=== PATIENT | male | born 1965 | race Caucasian/White ===

== ENCOUNTER 2019-04-02 22:23 | Emergency (ER) | payer OTHER, MEDICAID, SELFPAY ==
[2019-04-02 22:27] VITALS: BP 152/104; PULSE 103; RESP 16; TEMP 36.9; O2SAT 99; BMI 24.3
--- NOTE | 2019-04-02 23:03 | ED_ITS ---
HPI - Back Pain/Injury General Chief Complaint: Back Pain/Injury Stated Complaint: SCIATICA LEFT LEG LOTS OF PAIN Time Seen by Provider: 04/02/19 22:54 Source: patient Mode of arrival: Ambulatory Limitations: no limitations History of Present Illness HPI Narrative: 53-year-old male here for evaluation of left leg sciatic pain. He states that this is the 2nd episode of this. His 1st episode was many years ago. He is unsure how long that episode lasted in. His current episode has been going on for the past week. A couple days ago he was seen in the walk-in clinic was given prednisone and Flexeril. He has been taking his medications without any changes. No fevers. No bowel or bladder symptoms. States the pain is on the outside/back of his left leg down to his knee. Related Data Previous Rx's Medication Instructions Recorded albuterol sulfate 90 mcg/actuation 2 inhalation INHALATION Q4-6H PRN 03/19/19 aerosol inhaler #6.7 gram benzonatate 100 mg capsule 100 mg PO TID PRN #14 cap 03/19/19 promethazine 6.25 mg-codeine 10 5 ml PO Q4-6H PRN #150 ml 03/19/19 mg/5 mL syrup cyclobenzaprine 10 mg tablet 10 mg PO BEDTIME #14 tab 03/31/19 prednisone 20 mg tablet See Rx Instructions PO DAILY 10 03/31/19 Days #14 tab hydrocodone-acetaminophen [[place]] 1 tab PO Q4-6H PRN #10 tab 04/02/19 Allergies Allergy/AdvReac Type Severity Reaction Status Date / Time No Known Drug Allergies Allergy Verified 03/31/19 15:48 Review of Systems Constitutional Constitutional: Denies fever(s) Cardiovascular Cardiovascular: Denies chest pain and Denies dyspnea Respiratory Respiratory: Denies dyspnea Gastrointestinal Gastrointestinal: Denies abdominal pain Musculoskeletal Musculoskeletal: Denies back pain, Denies myalgias and Denies arthralgias Integumentary/Breasts Skin/Breast: Denies lesions and Denies rash Neurologic Neurologic: Reports paresthesias Hematologic/Lymphatic Hematologic/Lymphatic: Denies easy bleeding and Denies easy bruising Patient History Medical History Bronchitis (Inactive) Social History Smoking Status: Current every day smoker Smoking Status: Current every day smoker tobacco type: cigarettes alcohol intake frequency: a few times a week Substance Use Type: marijuana Exam Initial Vital Signs Initial Vital Signs: Vital Signs Temperature 98.4 F 04/02/19 22:27 Pulse Rate 103 H 04/02/19 22:27 Respiratory Rate 16 04/02/19 22:27 Blood Pressure 152/104 H 04/02/19 22:27 Pulse Oximetry 99 04/02/19 22:27 Const General: cooperative and comfortable Orientation: alert and awake HENMT Head: normal to inspection and normocephalic Resp Effort & Inspection: normal respiratory effort Auscultation: clear to auscultation bilaterally Cardio Rate: tachycardic Rhythm: regular rhythm GI Inspection: non-distended Palpation: soft and No firm Skin Lesions: no lesions Rashes: no rashes Neuro General: alert, awake and oriented x3 Cognition: normal cognition Speech: speech normal Gait: normal gait Motor: muscle tone normal throughout Extrem General: normal to inspection and capillary refill normal Course Orders Ordered: Discontinued Medications Hydrocodone Bitart/Acetaminophen (Vicodin 5/325 Prepack) 1 bottle MISC SEEINSTR ONE Stop: 04/02/19 23:04 Ketorolac Tromethamine (Toradol) 30 mg IM NOW ONE Stop: 04/02/19 23:04 Vital Signs Vital signs: Vital Signs - 8 hr 04/02/19 22:27 04/02/19 23:23 Temperature 98.4 F Pulse Rate 103 H 101 H Respiratory Rate 16 18 Blood Pressure 152/104 H Blood Pressure [Right Arm] 152/90 H Pulse Oximetry 99 98 MDM - Back Pain/Injury MDM Narrative Medical decision making narrative: Left-sided sciatic pain. Is currently on Flexeril and prednisone given at an outside clinic visit. No red flag signs concerning for cauda equina. No trauma. No fevers. No indication for radiologic studies. Was given a shot of Toradol here in the ER. He is going to continue his prednisone and Flexeril as directed. Send home with a very short prescription of pain medication. He was given return precautions and follow-up instructions. He expressed understanding and agreement with plan. Discharge Plan Departure Patient Disposition: Home Clinical Impression: Sciatica Qualifiers: Laterality: left Qualified Code(s): M54.32 - Sciatica, left side Discharge Date/Time: 04/02/19 23:26 Instructions: DI for Sciatica Activity Restrictions/Additional Instructions: [facility] Continue the medications that you were given prescriptions for at your last visit. After the prednisone is completed start taking 600 mg of ibuprofen/Motrin every 8 hours or of Naprosyn 2 times a day. If you need help establishing a primary provider here in the area you can contact [phone]. Return to the emergency department for any new symptoms Prescriptions: New hydrocodone-acetaminophen [[place]] 5-325 mg tablet 1 tab PO Q4-6H PRN (Reason: pain) Qty: 10 RF: 0 No Action albuterol sulfate 90 mcg/actuation HFA aerosol inhaler 2 inhalation INHALATION Q4-6H PRN (Reason: shortness of breath or wheezing) Qty: 6.7 RF: 0 promethazine-codeine 6.25-10 mg/5 mL syrup 5 ml PO Q4-6H PRN (Reason: cough) Qty: 150 RF: 0 benzonatate [Tessalon Perles] 100 mg capsule 100 mg PO TID PRN (Reason: cough) Qty: 14 RF: 0 prednisone 20 mg tablet See Rx Instructions PO DAILY 10 Days Qty: 14 RF: 0 cyclobenzaprine 10 mg tablet 10 mg PO BEDTIME Qty: 14 RF: 0
[2019-04-02 23:23] VITALS: BP 152/90; PULSE 101; RESP 18; O2SAT 98
== END 2019-04-02 23:26 | disposition home or self-care (01) ==
PROVIDERS: Emergency Provider Emergency Medicine
DX: M54.32 Sciatica, left side (principal)
CPT/HCPCS: 96372; 99281; 99283

== ENCOUNTER 2019-10-29 20:17 | Emergency (ER) | payer OTHER, MEDICAID, SELFPAY ==
--- NOTE | 2019-10-29 20:24 | ED.GENADULT ---
HPI - General Adult General Chief complaint: Chest Pain Stated complaint: thinks broke his ribs, two days ago Time Seen by Provider: 10/29/19 20:24 History of Present Illness HPI narrative: 54-year-old gentleman with no primary care physician, smoker and drinks regularly tripped over a mattress and the garage 48 hours ago and fell and landed on his right ribs anterior lower. He denies syncope, hitting his head he is on no blood thinners and describes no injuries to other parts of his body with the fall. He has been having increasing pain and difficulty breathing due to pain and splinting since then. Was hurting enough last night that he had difficulty sleeping. He describes no fever, cough, chills, dyspnea(despite splinting), orthopnea or abdominal pain. Notes that he drinks 2-3 drinks a day typically. He has tried aspirin and CBD for the pain and has found it to be ineffective. Related Data Previous Rx's Medication Instructions Recorded albuterol sulfate 90 mcg/actuation 2 inhalation INHALATION Q4-6H PRN 03/19/19 aerosol inhaler #6.7 gram benzonatate 100 mg capsule 100 mg PO TID PRN #14 cap 03/19/19 promethazine 6.25 mg-codeine 10 5 ml PO Q4-6H PRN #150 ml 03/19/19 mg/5 mL syrup cyclobenzaprine 10 mg tablet 10 mg PO BEDTIME #14 tab 03/31/19 hydrocodone-acetaminophen [[place]] 1 tab PO Q4-6H PRN #10 tab 04/02/19 erythromycin 5 mg/gram (0.5 %) eye 1 applic OPHTHALMIC (EYE) BID 7 10/26/19 ointment Days #3.5 gram oxycodone-acetaminophen 1 tab PO Q6H PRN #14 tab 10/29/19 Allergies Allergy/AdvReac Type Severity Reaction Status Date / Time No Known Drug Allergies Allergy Verified 10/26/19 16:31 Review of Systems Review of Systems Narrative: Pertinent positive and negative findings as per HPI Remainder of review of systems is otherwise unremarkable for Constitutional: Fevers, chills, weakness ENT: No sore throat, neck pain, ear pain CV: Chest pain, palpitations, dyspnea on exertion Respiratory: Cough, wheeze, dyspnea GI: Nausea, vomiting, diarrhea, change in bowel habits, black or bloody stools : Dysuria, hematuria, flank pain MS: Muscle weakness, numbness, joint swelling or warmth Skin: Rashes, nonhealing lesions Neuro: Syncope, dizziness, tingling Patient History Medical History (Updated 10/29/19 @ 21:22 by Vicenta Pierce MD) Bronchitis (Inactive) Tobacco use disorder (Acute) Social History Smoking Status: Current every day smoker Smoking Status: Current every day smoker tobacco type: cigarettes alcohol intake frequency: a few times a week Substance Use Type: marijuana Exam Narrative Exam Narrative: General: Healthy appearing, splinting due to rib pain. Able to give a complete and coherent history. Well-nourished well-developed HEENT: Moist mucous membranes, normal sclera with reactive pupils, Neck: No JVD, supple Respiratory: Lungs with scattered wheeze and rhonchi in the right base with significant splinting. Tender anterior axillary line, lower ribs right side without any the bruising or contusion or abrasion Cardiac: Mild tachycardia with no murmurs no bruits Abdomen: Soft nontender good bowel tones, no flank pain Skin: Warm and dry, no rashes Neurologic: Grossly neurologically intact with no obvious asymmetries or abnormalities Extremities: well perfused Psych: Cooperative, appropriate insight and affect Initial Vital Signs Initial Vital Signs: Vital Signs Temperature 99.3 F 10/29/19 20:29 Pulse Rate 117 H 10/29/19 20:29 Respiratory Rate 22 10/29/19 20:29 Blood Pressure 141/88 H 10/29/19 20:29 Pulse Oximetry 97 10/29/19 20:29 Course Orders Ordered: ED Orders 10/29/19 20:32 XR ribs RT min 3V w CXR1V Stat Discontinued Medications Ketorolac Tromethamine (Toradol) 30 mg IM NOW ONE Stop: 10/29/19 20:34 Last Admin: 10/29/19 20:42 Dose: 30 mg Documented by: [email or web address] Oxycodone/Acetaminophen (Endocet 5/325 Prepack) 1 bottle MISC SEEINSTR ONE Stop: 10/29/19 21:23 Last Admin: 10/29/19 21:28 Dose: 1 bottle Documented by: MARIS Vital Signs Vital signs: Vital Signs - 8 hr 10/29/19 20:29 10/29/19 21:36 Temperature 99.3 F Pulse Rate 117 H 109 H Respiratory Rate 22 18 Blood Pressure 141/88 H 131/79 Pulse Oximetry 97 95 Medical Decision Making Medical Records Medical records reviewed: Yes I reviewed the patient's medical records. Imaging Data Rib x-rays: Radiologist's Impression: IMPRESSION: Right 9th and 10th anterior lateral rib fractures. No evidence acute pulmonary process. Dictated by: Priyank Kaiser M.D. on 10/29/2019 at 20:56 MDM Narrative Medical decision making narrative: Mechanical fall 48 hours ago with right 9 in 10 anterior lateral rib fractures exactly where his pain is. No other injury. No hemothorax, pneumothorax. Will discharge him home with pain medication and incentive spirometer to try and prevent atelectasis and subsequent pneumonia. Safe for home discharge Discharge Plan Departure Patient Disposition: Home Clinical Impression: Closed rib fracture Qualifiers: Encounter type: initial encounter Rib fracture type: multiple ribs Laterality: right Qualified Code(s): S22.41XA - Multiple fractures of ribs, right side, initial encounter for closed fracture Discharge Date/Time: 10/29/19 21:40 Instructions: DI for Rib Fracture Activity Restrictions/Additional Instructions: Thank you for coming in today You did infract break your right 9th and 10th rib exactly where you are hurting. Fortunately, he did not cause any underlying damage. There is no collapsed lung or blood collecting in your lung. Injuries tend to hurt the most at 48 hours which is today for you. I would expect that today and tomorrow going to be equally sore and then you should begin to improve slightly. Using 400 mg of ibuprofen (2 [id number] pills) and 1 Tylenol every 6 hours can be very helpful in controlling pain. For severe pain, use 1-[address] of the Tylen[address] Percocet is a narcotic and can be habit-forming. Please do not mix this with alcohol as it can suppress your breathing and, in combination, be lethal. There is significant benefit to remaining active. Please use the incentive spirometer to make sure that your lungs are completely inflating 2-3 times every few hours while you are awake. I hope you heal quickly. Prescriptions: New oxycodone-acetaminophen 5-325 mg tablet 1 tab PO Q6H PRN (Reason: pain) Qty: 14 RF: 0 No Action albuterol sulfate 90 mcg/actuation HFA aerosol inhaler 2 inhalation INHALATION Q4-6H PRN (Reason: shortness of breath or wheezing) Qty: 6.7 RF: 0 promethazine-codeine 6.25-10 mg/5 mL syrup 5 ml PO Q4-6H PRN (Reason: cough) Qty: 150 RF: 0 benzonatate [Tessalon Perles] 100 mg capsule 100 mg PO TID PRN (Reason: cough) Qty: 14 RF: 0 cyclobenzaprine 10 mg tablet 10 mg PO BEDTIME Qty: 14 RF: 0 erythromycin 5 mg/gram (0.5 %) ointment 1 applic ophthalmic (eye) BID 7 Days Qty: 3.5 RF: 2 hydrocodone-acetaminophen [[place]] 5-325 mg tablet 1 tab PO Q4-6H PRN (Reason: pain) Qty: 10 RF: 0
[2019-10-29 20:29] VITALS: BP 141/88; PULSE 117; RESP 22; TEMP 37.4; O2SAT 97; BMI 24.3
--- NOTE | 2019-10-29 20:32 | DI.RAD.S_ITS ---
PROCEDURE: XR RIBS RT MIN 3V W CXR 1V INDICATIONS: fall, rib pain TECHNIQUE: 2 views of the right ribs were acquired, along with a single view chest. COMPARISON: None. FINDINGS: Surgical changes and devices: None. Bones and chest wall: Right 10th and 9th anterolateral rib fractures.. No suspicious bony lesions. Overlying soft tissues appear unremarkable. Lungs and pleura: No pleural effusions or pneumothorax. Lungs appear clear. Mediastinum: Mediastinal contours appear normal. Heart size is normal. IMPRESSION: Right 9th and 10th anterior lateral rib fractures. No evidence acute pulmonary process. Dictated by: Priyank Kaiser M.D. on 10/29/2019 at 20:56 Approved by: Priyank Kaiser M.D. on 10/29/2019 at 20:58
[2019-10-29] MEDS: KETOROLAC 60 MG/2 ML VIAL 30 MG IM (20:42)
[2019-10-29] MEDS: OXYCODONE/APAP 5/325 PREPACK 1 BOTTLE MISC (21:28)
[2019-10-29 21:36] VITALS: BP 131/79; PULSE 109; RESP 18; O2SAT 95
== END 2019-10-29 21:40 | disposition home or self-care (01) ==
PROVIDERS: Emergency Provider Emergency Medicine
DX: S22.41XA Multiple fractures of ribs, right side, initial encounter for closed fracture (principal); R07.9 Chest pain, unspecified; W19.XXXA Unspecified fall, initial encounter
CPT/HCPCS: 71101; 96372; 99283; J1885

== ENCOUNTER 2020-10-13 09:45 | Outpatient (RCR) | payer OTHER, MEDICAID, SELFPAY ==
--- NOTE | 2020-06-22 13:32 | PT.OIE ---
Current Diagnoses Pain in right shoulder (06/22/20) Unspecified disorder of synovium and tendon, right shoulder (06/22/20) Unspecified disorder of synovium and tendon, right upper arm (06/22/20) Impingement syndrome of right shoulder (06/22/20) Past Medical History (Last Updated 10/29/19 @ 21:11 by Vicenta Pierce MD) Bronchitis Tobacco use disorder Visit Care Team Role Provider Type Jarod Raymond MD Primary Care Provider Non-Staff Specialty: Family Practice [facility] [address] [place] [place] [address] [place], [address] Email: Hai Munoz PA-C Attending Provider Non-Staff Referring Provider Specialty: Nursing Address: [facility], [place], [address] Email: Physical Therapy Initial Evaluation PT-OP-A Visit Information Start: 06/22/20 13:02 Freq: Status: Active Protocol: Document 06/22/20 13:02 (Rec: 06/22/20 13:31 [email or web address]) Out-Patient Physical Therapy Visit Information Visit Information Visit Type Initial Evaluation Visit Start Time 08:15 Visit Stop Time 09:00 Total Visit Minutes 45 Visit Number 1/ 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 It has been getting worse since February,. His pain is 3- 8/10 depends on the activity. Lifting his arm pass > 90 degrees, reaching behind his back aggravates his pain the most. He currently has difficulty sleeping on his R side. He only finds inactivity and taking Naproxen to relieve his pain. He did have a cortisone shot 3 weeks ago which helped his pain but not ROM. Pt had PT years ago for his L shoulder and had successful result. 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 Prior Treatments and Tests Pt stated he had X-ray a few weeks ago but he doesnt have the result. Treatment Goals Patient/Caregiver Goals 1. To be pain free with shoulder movements 2. To be able to play frisbee 3. to be able to reach overhead. Current Functional Impairments (Reported) Functional Limitations- ADL's pt has lexis/doff his shirts/ jacket with her R arm first unable to reach overhead to his shelf He uses his L arm to lift most of the time Functional Limitations- Recreation/ unable to play frisbee at this Hobbies point PT-OP-C Subjective Start: 06/22/20 13:02 Freq: Status: Active Protocol: Document 06/22/20 13:02 (Rec: 06/22/20 13:31 [email or web address]) Patient Questionnaires Quick Dash- Upper Extremity Quick Dash UE Score 43.18 Quick Dash UE Impairment 40 to 59% Impaired (Score 40- 59) OP-PT Pain Assessment Location R shoulder Pain Location Details anterior shoulder Scale Used 3-8 Description Aching Frequency Frequent Pain Aggravating Factors Activity,Exercise,Lifting Pain Alleviating Factors Inactivity,Lying Supine PT-OP-E Functional Tests Start: 06/22/20 13:02 Freq: Status: Active Protocol: Document 06/22/20 13:02 HH (Rec: 06/22/20 13:31 [email or web address]) Functional Tests Apley's Scratch Test Action 2- Left T3 Action 2- Right C7 Action 3- Left T4 Action 3- Right R SIJ PT-OP-F Manual Assessment Start: 06/22/20 13:02 Freq: Status: Active Protocol: Document 06/22/20 13:02 HH (Rec: 06/22/20 13:31 [email or web address]) Manual Assessments Soft Tissue Assessment Soft Tissue Mobility Assessment pain and tenderness at subscapularis, teres minor and infraspinatus muscle atrophy at infraspinatus and teres minor area PT-OP-K Range of Motion Start: 06/22/20 13:02 Freq: Status: Active Protocol: Document 06/22/20 13:02 HH (Rec: 06/22/20 13:31 [email or web address]) Shoulder Goniometric Range of Motion Shoulder Right Passive Shoulder ROM WFL No Testing Position Supine Flexion 145 Abduction 95 External Rotation at 90 degrees 45 Abduction Internal Rotation 25 Comments pain at end range for all motions. Right Active Shoulder ROM WFL No Testing Position Standing Flexion 115 Extension 35 Abduction 75 External Rotation at 90 degrees 35 Abduction Internal Rotation 25 Comments pain at end range for all motions. Left Active Shoulder ROM WFL Yes Testing Position Standing Flexion 155 Extension 50 Abduction 145 External Rotation at 90 degrees 85 Abduction Internal Rotation 80 PT-OP-L Special Tests Start: 06/22/20 13:02 Freq: Status: Active Protocol: Document 06/22/20 13:02 (Rec: 06/22/20 13:31 [email or web address]) Special Tests Cervical Spine Special Tests Foraminal Compression Test Results -ve Spurling's Test Test Results -ve Shoulder Special Tests Apprehension Test Test Results +ve R Comments improve shoulder ER noted with posterior glide Neer Impingement Test Results +VE R Ramirez Daniel Impingement Test Results +ve R Grind Labrum Test Results -ve Empty Can Test Results +ve Comments anterior shoulder pain at R Drop Arm Rotator Cuff Test Results -ve Comments but weakness noted and pain to get to the position AC Joint Compression Test Results -ve PT-OP-M Strength Start: 06/22/20 13:02 Freq: Status: Active Protocol: Document 06/22/20 13:02 (Rec: 06/22/20 13:31 [email or web address]) Shoulder Strength Shoulder Manual Muscle Testing Right Flexion 4- Good- Extension 4- Good- Abduction (C5) 3+ Fair+ External Rotation 3+ Fair+ Internal Rotation 3+ Fair+ Comments pain noted for all resisted motions Left Flexion 5 Normal Extension 5 Normal Abduction (C5) 5 Normal Adduction 5 Normal External Rotation 5 Normal Internal Rotation 5 Normal Elbow/Forearm Strength Elbow and Forearm Manual Muscle Testing Left Flexion (C6) 5 Normal Extension (C7) 5 Normal Right Flexion (C6) 4+ Good+ Extension (C7) 4+ Good+ Comments no pain noted. PT-OP-Q Treatments Start: 06/22/20 13:02 Freq: Status: Active Protocol: Document 06/22/20 13:02 (Rec: 06/22/20 13:31 [email or web address]) Manual Therapy Treatment Soft Tissue Mobilization RTCs Body Location R shoulder Mobilization Type Sustained Pressure,Trigger Point Release Intensity/Depth Moderate Body Position Supine Comments significant pain noted at infraspinatus, subscapularis and teres minor. Pain reduced after manual therapy PT-OP-T Assessment and Plan Start: 06/22/20 13:02 Freq: Status: Active Protocol: Document 06/22/20 13:02 (Rec: 06/22/20 13:31 [email or web address]) Physical Therapy Assessment Rehab Potential Rehabilitation Potential Excellent Evaluation Complexity Number of Personal Factors/Comorbidities 1-2 Number of Body Systems Impaired 1-2 Clinical Presentation at Evaluation Stable Impairments Impairments Activity Tolerance,Functional Activities,Functional Mobility ,Pain,Posture,ROM,Soft Tissue Mobility,Strength Goals HEP Impairment pt does not have HEP Shelter Goal (LTG) pt will comply to HEP safely and independently at home LTG Duration 4 weeks strength Impairment pt has limited R shoulder strength Short Term Goal (STG) pt will improve his R shoulder strength by 1/2 grade STG Duration 4weeks Shelter Goal (LTG) pt will improve his R shoulder stregnth by 1 full grade so he can reach overhead for objects > 5lbs without increased pain. LTG Duration 8 weeks ROM Impairment pt has very limited ROM at R shoulder Short Term Goal (STG) pt will improve his R shoulder ROM in all directions by 15 degrees STG Duration 4 weeks Shelter Goal (LTG) pt will improve his R shoulder ROM in all directions by 20 degrees in order for him to lexis/doff clothes and reach overhead. LTG Duration 8 weeks quickdash Impairment pt scores 43 on quick dash Short Term Goal (STG) pt will score 30 and less on quick dash to improve his mobility and strength STG Duration 4 weeks Shelter Goal (LTG) pt will score 20 and less on quick dash to improve his mobility and strength LTG Duration 8 weeks Assessment Summary Assessment pt is a 54yo male here for his chronic R shoulder pain since 4 years ago. Upon assessment, pt shows signs of shoulder impingement and RTC tendonopathy, but no signs of labral tear or torn RTC. He does have very limited ROM ( PROM> AROM) and strength which limits him from reaching overhead and behind his back to lexis/doff clothes. Pt did show immediate ROM improvements after manual therapy at RTC. Pt will benefit from skilled therapy to improve his shoulder ROM , strength and stability to allow him to regain ability to complete daily tasks. 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 and lexis/doff clothes) Physical Therapy Plan Frequency and Duration Frequency of Treatment 2x/wkx4, 1x/wkx4 Duration of Treatment 8 weeks Plan of Care Start Date 06/22/20 Plan of Care End Date 08/21/20 Therapeutic Interventions Therapeutic Interventions Gait Training,Home Exercise Program,Joint Mobilizations, Manual Therapy,Neuromuscular Re-education,Patient/Caregiver Education,Self-Care/Home Management,Soft Tissue Mobilization,Taping, Therapeutic Activities, Therapeutic Exercises Modalities Biofeedback,Cold Pack/Ice Massage,Electric Stimulation, Hot Packs,Infrared Therapy, Iontophoresis,Ultrasound Next Visit Focus/Plan Next Note Type Treatment Note Next Visit Plan check cervical ROM sTM at subscap, infra, teres minor posterior glide of GHJ mariel scap retraction TOÑA hdz
--- NOTE | 2020-06-22 13:32 | PT.OPPOC ---
Physical, Occupational & Speech Therapy At [facility] Current Diagnoses Pain in right shoulder (06/22/20) Unspecified disorder of synovium and tendon, right shoulder (06/22/20) Unspecified disorder of synovium and tendon, right upper arm (06/22/20) Impingement syndrome of right shoulder (06/22/20) Visit Care Team Role Provider Type Jarod Raymond MD Primary Care Provider Non-Staff Specialty: [facility] Address: [address] , [place], [address] Email: Hai Munoz PA-C Attending Provider Non-Staff Referring Provider Specialty: Nursing Address: [address], [place], [address] Email: Plan Of Care PT-OP-T Assessment and Plan Start: 06/22/20 13:02 Freq: Status: Active Protocol: Document 06/22/20 13:02 (Rec: 06/22/20 13:31 [email or web address]) Physical Therapy Assessment Rehab Potential Rehabilitation Potential Excellent Evaluation Complexity Number of Personal Factors/Comorbidities 1-2 Number of Body Systems Impaired 1-2 Clinical Presentation at Evaluation Stable Impairments Impairments Activity Tolerance,Functional Activities,Functional Mobility ,Pain,Posture,ROM,Soft Tissue Mobility,Strength Goals HEP Impairment pt does not have HEP Senior Living Goal (LTG) pt will comply to HEP safely and independently at home LTG Duration 4 weeks strength Impairment pt has limited R shoulder strength Short Term Goal (STG) pt will improve his R shoulder strength by 1/2 grade STG Duration 4weeks Removable Prosthodontist Goal (LTG) pt will improve his R shoulder stregnth by 1 full grade so he can reach overhead for objects > 5lbs without increased pain. LTG Duration 8 weeks ROM Impairment pt has very limited ROM at R shoulder Short Term Goal (STG) pt will improve his R shoulder ROM in all directions by 15 degrees STG Duration 4 weeks Senior Living Goal (LTG) pt will improve his R shoulder ROM in all directions by 20 degrees in order for him to lexis/doff clothes and reach overhead. LTG Duration 8 weeks quickdash Impairment pt scores 43 on quick dash Short Term Goal (STG) pt will score 30 and less on quick dash to improve his mobility and strength STG Duration 4 weeks Senior Living Goal (LTG) pt will score 20 and less on quick dash to improve his mobility and strength LTG Duration 8 weeks Assessment Summary Assessment pt is a 54yo male here for his chronic R shoulder pain since 4 years ago. Upon assessment, pt shows signs of shoulder impingement and RTC tendonopathy, but no signs of labral tear or torn RTC. He does have very limited ROM ( PROM> AROM) and strength which limits him from reaching overhead and behind his back to lexis/doff clothes. Pt did show immediate ROM improvements after manual therapy at RTC. Pt will benefit from skilled therapy to improve his shoulder ROM , strength and stability to allow him to regain ability to complete daily tasks. 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 and lexis/doff clothes) Physical Therapy Plan Frequency and Duration Frequency of Treatment 2x/wkx4, 1x/wkx4 Duration of Treatment 8 weeks Plan of Care Start Date 06/22/20 Plan of Care End Date 08/21/20 Therapeutic Interventions Therapeutic Interventions Gait Training,Home Exercise Program,Joint Mobilizations, Manual Therapy,Neuromuscular Re-education,Patient/Caregiver Education,Self-Care/Home Management,Soft Tissue Mobilization,Taping, Therapeutic Activities, Therapeutic Exercises Modalities Biofeedback,Cold Pack/Ice Massage,Electric Stimulation, Hot Packs,Infrared Therapy, Iontophoresis,Ultrasound Next Visit Focus/Plan Next Note Type Treatment Note Next Visit Plan check cervical ROM sTM at subscap, infra, teres minor posterior glide of GHJ mariel scap retraction AAROM withcane Plan of Care Dates Plan of Care Start Date 06/22/20 Plan of Care End Date 08/21/20 Electronically Signed by: Charles Yung PT 06/22/20 [id number] Please Sign and Return: I have reviewed this Plan of Care and certify that the skilled therapy services above are required to meet the patient?s needs. Physician Signature Date Printed Name and Credentials Clinical Instructor Signature Printed Name and Credentials
--- NOTE | 2020-06-27 09:01 | PT.OTN ---
Current Diagnoses Pain in right shoulder (06/27/20) Unspecified disorder of synovium and tendon, right shoulder (06/27/20) Unspecified disorder of synovium and tendon, right upper arm (06/27/20) Impingement syndrome of right shoulder (06/27/20) Physical Therapy Treatment Note PT-OP-A Visit Information Start: 06/22/20 13:02 Freq: Status: Active Protocol: Document 06/27/20 08:19 (Rec: 06/27/20 09:01 [id number]) Out-Patient Physical Therapy Visit Information Visit Information Visit Type Treatment Note Visit Start Time 08:30 Visit Stop Time 09:00 Total Visit Minutes 30 Visit Number 2/9 Number of GPS NAVIGATION INSTALLER Visits 0 PT-OP-B Current Condition Start: 06/22/20 13:02 Freq: Status: Active Protocol: Document 06/22/20 13:02 HH (Rec: 06/22/20 13:31 [email or web address]) Current Condition History of Current Condition Onset Date 4years ago Current Complaints Chronic R shoulder pain, difficulty to reach overhead History of Current Condition Pt is a 54yo male here for his chronic R shoulder pain started 4 years ago. It has been getting worse since February,. His pain is 3- 8/10 depends on the activity. Lifting his arm pass > 90 degrees, reaching behind his back aggravates his pain the most. He currently has difficulty sleeping on his R side. He only finds inactivity and taking Naproxen to relieve his pain. He did have a cortisone shot 3 weeks ago which helped his pain but not ROM. Pt had PT years ago for his L shoulder and had successful result. 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 Prior Treatments and Tests Pt stated he had X-ray a few weeks ago but he doesnt have the result. Treatment Goals Patient/Caregiver Goals 1. To be pain free with shoulder movements 2. To be able to play frisbee 3. to be able to reach overhead. Current Functional Impairments (Reported) Functional Limitations- ADL's pt has lexis/doff his shirts/ jacket with her R arm first unable to reach overhead to his shelf He uses his L arm to lift most of the time Functional Limitations- Recreation/ unable to play frisbee at this Hobbies point PT-OP-C Subjective Start: 06/22/20 13:02 Freq: Status: Active Protocol: Document 06/27/20 08:19 (Rec: 06/27/20 09:01 [id number]) OP-PT Subjective Patient Comments Patient Comments I might got a little better from last time but it definitely didnt get worse. PT-OP-E Functional Tests Start: 06/22/20 13:02 Freq: Status: Active Protocol: Document 06/22/20 13:02 HH (Rec: 06/22/20 13:31 [email or web address]) Functional Tests Apley's Scratch Test Action 2- Left T3 Action 2- Right C7 Action 3- Left T4 Action 3- Right R SIJ PT-OP-F Manual Assessment Start: 06/22/20 13:02 Freq: Status: Active Protocol: Document 06/22/20 13:02 HH (Rec: 06/22/20 13:31 [email or web address]) Manual Assessments Soft Tissue Assessment Soft Tissue Mobility Assessment pain and tenderness at subscapularis, teres minor and infraspinatus muscle atrophy at infraspinatus and teres minor area PT-OP-K Range of Motion Start: 06/22/20 13:02 Freq: Status: Active Protocol: Document 06/22/20 13:02 (Rec: 06/22/20 13:31 [email or web address]) Shoulder Goniometric Range of Motion Shoulder Right Passive Shoulder ROM WFL No Testing Position Supine Flexion 145 Abduction 95 External Rotation at 90 degrees 45 Abduction Internal Rotation 25 Comments pain at end range for all motions. Right Active Shoulder ROM WFL No Testing Position Standing Flexion 115 Extension 35 Abduction 75 External Rotation at 90 degrees 35 Abduction Internal Rotation 25 Comments pain at end range for all motions. Left Active Shoulder ROM WFL Yes Testing Position Standing Flexion 155 Extension 50 Abduction 145 External Rotation at 90 degrees 85 Abduction Internal Rotation 80 PT-OP-L Special Tests Start: 06/22/20 13:02 Freq: Status: Active Protocol: Document 06/22/20 13:02 (Rec: 06/22/20 13:31 [email or web address]) Special Tests Cervical Spine Special Tests Foraminal Compression Test Results -ve Spurling's Test Test Results -ve Shoulder Special Tests Apprehension Test Test Results +ve R Comments improve shoulder ER noted with posterior glide Neer Impingement Test Results +VE R Ramirez Daniel Impingement Test Results +ve R Grind Labrum Test Results -ve Empty Can Test Results +ve Comments anterior shoulder pain at R Drop Arm Rotator Cuff Test Results -ve Comments but weakness noted and pain to get to the position AC Joint Compression Test Results -ve PT-OP-M Strength Start: 06/22/20 13:02 Freq: Status: Active Protocol: Document 06/22/20 13:02 (Rec: 06/22/20 13:31 [email or web address]) Shoulder Strength Shoulder Manual Muscle Testing Right Flexion 4- Good- Extension 4- Good- Abduction (C5) 3+ Fair+ External Rotation 3+ Fair+ Internal Rotation 3+ Fair+ Comments pain noted for all resisted motions Left Flexion 5 Normal Extension 5 Normal Abduction (C5) 5 Normal Adduction 5 Normal External Rotation 5 Normal Internal Rotation 5 Normal Elbow/Forearm Strength Elbow and Forearm Manual Muscle Testing Left Flexion (C6) 5 Normal Extension (C7) 5 Normal Right Flexion (C6) 4+ Good+ Extension (C7) 4+ Good+ Comments no pain noted. PT-OP-Q Treatments Start: 06/22/20 13:02 Freq: Status: Active Protocol: Document 06/27/20 08:19 (Rec: 06/27/20 09:01 [id number]) Therapeutic Exercises Supine Exercises tennis ball Supine Exercise Name at RTC Side right Comments for HEP Sidelying Exercises open book Side bilateral Reps/Minutes 6 x 2 Comments for HEP, Standing Exercises shoulder ER Standing Exercise Name band pull apart Side bilateral Reps/Minutes 5x2 Comments pt has significant pain at anterior shoulder part scap pinch Side bilateral Reps/Minutes 10 x 2 Comments for HEP Manual Therapy Treatment Soft Tissue Mobilization RTCs Body Location R shoulder Mobilization Type Sustained Pressure,Trigger Point Release Intensity/Depth Moderate Body Position Supine Comments significant pain noted at infraspinatus, subscapularis and teres minor. Pain reduced after manual therapy Joint Mobilizations GHJ Joint R Direction posterior Grade III Body Position Supine Reps/Duration 5 mins PT-OP-T Assessment and Plan Start: 06/22/20 13:02 Freq: Status: Active Protocol: Document 06/27/20 08:19 (Rec: 06/27/20 09:01 [id number]) Physical Therapy Assessment Goals HEP Impairment pt does not have HEP Care Home Goal (LTG) pt will comply to HEP safely and independently at home LTG Duration 4 weeks strength Impairment pt has limited R shoulder strength Short Term Goal (STG) pt will improve his R shoulder strength by 1/2 grade STG Duration 4weeks Care Home Goal (LTG) pt will improve his R shoulder stregnth by 1 full grade so he can reach overhead for objects > 5lbs without increased pain. LTG Duration 8 weeks ROM Impairment pt has very limited ROM at R shoulder Short Term Goal (STG) pt will improve his R shoulder ROM in all directions by 15 degrees STG Duration 4 weeks Care Home Goal (LTG) pt will improve his R shoulder ROM in all directions by 20 degrees in order for him to lexis/doff clothes and reach overhead. LTG Duration 8 weeks quickdash Impairment pt scores 43 on quick dash Short Term Goal (STG) pt will score 30 and less on quick dash to improve his mobility and strength STG Duration 4 weeks Care Home Goal (LTG) pt will score 20 and less on quick dash to improve his mobility and strength LTG Duration 8 weeks Assessment Summary Assessment pt shows improved ROM today. Added HEP for him but pt has difficulty doing shoulder ER d /t significant pain. Will work on it next visit. Physical Therapy Plan Frequency and Duration Frequency of Treatment 2x/wkx4, 1x/wkx4 Duration of Treatment 8 weeks Plan of Care Start Date 06/22/20 Plan of Care End Date 08/21/20 Next Visit Focus/Plan Next Note Type Treatment Note Next Visit Plan check cervical ROM sTM at subscap, infra, teres minor posterior glide of GHJ mariel scap retraction TOÑA withslim
--- NOTE | 2020-06-29 09:02 | PT.OTN ---
Current Diagnoses Pain in right shoulder (06/29/20) Unspecified disorder of synovium and tendon, right shoulder (06/29/20) Unspecified disorder of synovium and tendon, right upper arm (06/29/20) Impingement syndrome of right shoulder (06/29/20) Physical Therapy Treatment Note PT-OP-A Visit Information Start: 06/22/20 13:02 Freq: Status: Active Protocol: Document 06/29/20 08:13 (Rec: 06/29/20 09:01 [id number]) Out-Patient Physical Therapy Visit Information Visit Information Visit Type Treatment Note Visit Start Time 08:15 Visit Stop Time 09:00 Total Visit Minutes 45 Visit Number 3/9 Number of ASIC ENGINEER Visits 0 PT-OP-B Current Condition Start: 06/22/20 13:02 Freq: Status: Active Protocol: Document 06/22/20 13:02 HH (Rec: 06/22/20 13:31 [email or web address]) Current Condition History of Current Condition Onset Date 4years ago Current Complaints Chronic R shoulder pain, difficulty to reach overhead History of Current Condition Pt is a 54yo male here for his chronic R shoulder pain started 4 years ago. It has been getting worse since February,. His pain is 3- 8/10 depends on the activity. Lifting his arm pass > 90 degrees, reaching behind his back aggravates his pain the most. He currently has difficulty sleeping on his R side. He only finds inactivity and taking Naproxen to relieve his pain. He did have a cortisone shot 3 weeks ago which helped his pain but not ROM. Pt had PT years ago for his L shoulder and had successful result. 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 Prior Treatments and Tests Pt stated he had X-ray a few weeks ago but he doesnt have the result. Treatment Goals Patient/Caregiver Goals 1. To be pain free with shoulder movements 2. To be able to play frisbee 3. to be able to reach overhead. Current Functional Impairments (Reported) Functional Limitations- ADL's pt has lexis/doff his shirts/ jacket with her R arm first unable to reach overhead to his shelf He uses his L arm to lift most of the time Functional Limitations- Recreation/ unable to play frisbee at this Hobbies point PT-OP-C Subjective Start: 06/22/20 13:02 Freq: Status: Active Protocol: Document 06/29/20 08:13 HH (Rec: 06/29/20 09:01 [id number]) OP-PT Subjective Patient Comments Patient Comments I feel fine from last time. I thought my pain has gotten better but i think i slept wrong so it bothered during my sleep Patient Reported Progress Improving PT-OP-E Functional Tests Start: 06/22/20 13:02 Freq: Status: Active Protocol: Document 06/22/20 13:02 HH (Rec: 06/22/20 13:31 [email or web address]) Functional Tests Apley's Scratch Test Action 2- Left T3 Action 2- Right C7 Action 3- Left T4 Action 3- Right R SIJ PT-OP-F Manual Assessment Start: 06/22/20 13:02 Freq: Status: Active Protocol: Document 06/22/20 13:02 HH (Rec: 06/22/20 13:31 [email or web address]) Manual Assessments Soft Tissue Assessment Soft Tissue Mobility Assessment pain and tenderness at subscapularis, teres minor and infraspinatus muscle atrophy at infraspinatus and teres minor area PT-OP-K Range of Motion Start: 06/22/20 13:02 Freq: Status: Active Protocol: Document 06/22/20 13:02 HH (Rec: 06/22/20 13:31 [email or web address]) Shoulder Goniometric Range of Motion Shoulder Right Passive Shoulder ROM WFL No Testing Position Supine Flexion 145 Abduction 95 External Rotation at 90 degrees 45 Abduction Internal Rotation 25 Comments pain at end range for all motions. Right Active Shoulder ROM WFL No Testing Position Standing Flexion 115 Extension 35 Abduction 75 External Rotation at 90 degrees 35 Abduction Internal Rotation 25 Comments pain at end range for all motions. Left Active Shoulder ROM WFL Yes Testing Position Standing Flexion 155 Extension 50 Abduction 145 External Rotation at 90 degrees 85 Abduction Internal Rotation 80 PT-OP-L Special Tests Start: 06/22/20 13:02 Freq: Status: Active Protocol: Document 06/22/20 13:02 HH (Rec: 06/22/20 13:31 [email or web address]) Special Tests Cervical Spine Special Tests Foraminal Compression Test Results -ve Spurling's Test Test Results -ve Shoulder Special Tests Apprehension Test Test Results +ve R Comments improve shoulder ER noted with posterior glide Neer Impingement Test Results +VE R Ramirez Daniel Impingement Test Results +ve R Grind Labrum Test Results -ve Empty Can Test Results +ve Comments anterior shoulder pain at R Drop Arm Rotator Cuff Test Results -ve Comments but weakness noted and pain to get to the position AC Joint Compression Test Results -ve PT-OP-M Strength Start: 06/22/20 13:02 Freq: Status: Active Protocol: Document 06/22/20 13:02 (Rec: 06/22/20 13:31 [email or web address]) Shoulder Strength Shoulder Manual Muscle Testing Right Flexion 4- Good- Extension 4- Good- Abduction (C5) 3+ Fair+ External Rotation 3+ Fair+ Internal Rotation 3+ Fair+ Comments pain noted for all resisted motions Left Flexion 5 Normal Extension 5 Normal Abduction (C5) 5 Normal Adduction 5 Normal External Rotation 5 Normal Internal Rotation 5 Normal Elbow/Forearm Strength Elbow and Forearm Manual Muscle Testing Left Flexion (C6) 5 Normal Extension (C7) 5 Normal Right Flexion (C6) 4+ Good+ Extension (C7) 4+ Good+ Comments no pain noted. PT-OP-Q Treatments Start: 06/22/20 13:02 Freq: Status: Active Protocol: Document 06/29/20 08:13 (Rec: 06/29/20 09:01 [id number]) Therapeutic Exercises Sidelying Exercises shoulder abduction Side bilateral Reps/Minutes 8x2 Comments pain noted horizontal abduction Side bilateral Reps/Minutes 8x2 Comments pain noted open book Side bilateral Reps/Minutes 6 x 2 Comments for HEP, Sitting Exercises pulleys Sitting Exercise Name flexion and abduction Side bilateral Reps/Minutes 4 mins total Standing Exercises bicep tendon stretch Side right Equipment Used level 5 band Reps/Minutes 10s stretch scap pinch Side bilateral Equipment Used level 1 band Reps/Minutes 10 x 2 Comments for HEP Manual Therapy Treatment Soft Tissue Mobilization RTCs Body Location R shoulder Mobilization Type Sustained Pressure,Trigger Point Release Intensity/Depth Moderate Body Position Supine Comments significant pain noted at infraspinatus, subscapularis and teres minor. Pain reduced after manual therapy Joint Mobilizations GHJ Joint R Direction posterior Grade III Body Position Supine Reps/Duration 5 mins PT-OP-T Assessment and Plan Start: 06/22/20 13:02 Freq: Status: Active Protocol: Document 06/29/20 08:13 (Rec: 06/29/20 09:01 [id number]) Physical Therapy Assessment Goals HEP Impairment pt does not have HEP Sanitary Aide Goal (LTG) pt will comply to HEP safely and independently at home LTG Duration 4 weeks strength Impairment pt has limited R shoulder strength Short Term Goal (STG) pt will improve his R shoulder strength by 1/2 grade STG Duration 4weeks Nursing Home Goal (LTG) pt will improve his R shoulder stregnth by 1 full grade so he can reach overhead for objects > 5lbs without increased pain. LTG Duration 8 weeks ROM Impairment pt has very limited ROM at R shoulder Short Term Goal (STG) pt will improve his R shoulder ROM in all directions by 15 degrees STG Duration 4 weeks Nursing Home Goal (LTG) pt will improve his R shoulder ROM in all directions by 20 degrees in order for him to lexis/doff clothes and reach overhead. LTG Duration 8 weeks quickdash Impairment pt scores 43 on quick dash Short Term Goal (STG) pt will score 30 and less on quick dash to improve his mobility and strength STG Duration 4 weeks Sanitary Aide Goal (LTG) pt will score 20 and less on quick dash to improve his mobility and strength LTG Duration 8 weeks Assessment Summary Assessment Pt shows almost full ROM today when he came in. Added pulleys and SL abduction and hor abd but AROM is still irritated to him. Physical Therapy Plan Frequency and Duration Frequency of Treatment 2x/wkx4, 1x/wkx4 Duration of Treatment 8 weeks Plan of Care Start Date 06/22/20 Plan of Care End Date 08/21/20 Next Visit Focus/Plan Next Note Type Treatment Note Next Visit Plan check cervical ROM sTM at subscap, infra, teres minor posterior glide of GHJ mariel scap retraction TOÑA [id number]
--- NOTE | 2020-07-04 08:59 | PT.OTN ---
Current Diagnoses Pain in right shoulder (07/04/20) Unspecified disorder of synovium and tendon, right shoulder (07/04/20) Unspecified disorder of synovium and tendon, right upper arm (07/04/20) Impingement syndrome of right shoulder (07/04/20) Physical Therapy Treatment Note PT-OP-A Visit Information Start: 06/22/20 13:02 Freq: Status: Active Protocol: Document 07/04/20 08:14 HH (Rec: 07/04/20 08:58 [id number]) Out-Patient Physical Therapy Visit Information Visit Information Visit Type Treatment Note Visit Start Time 08:15 Visit Stop Time 08:59 Total Visit Minutes 44 Visit Number 4/9 Number of ADMINISTRATION PROFESSIONAL Visits 0 PT-OP-B Current Condition Start: 06/22/20 13:02 Freq: Status: Active Protocol: Document 06/22/20 13:02 HH (Rec: 06/22/20 13:31 [email or web address]) Current Condition History of Current Condition Onset Date 4years ago Current Complaints Chronic R shoulder pain, difficulty to reach overhead History of Current Condition Pt is a 54yo male here for his chronic R shoulder pain started 4 years ago. It has been getting worse since February,. His pain is 3- 8/10 depends on the activity. Lifting his arm pass > 90 degrees, reaching behind his back aggravates his pain the most. He currently has difficulty sleeping on his R side. He only finds inactivity and taking Naproxen to relieve his pain. He did have a cortisone shot 3 weeks ago which helped his pain but not ROM. Pt had PT years ago for his L shoulder and had successful result. 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 Prior Treatments and Tests Pt stated he had X-ray a few weeks ago but he doesnt have the result. Treatment Goals Patient/Caregiver Goals 1. To be pain free with shoulder movements 2. To be able to play frisbee 3. to be able to reach overhead. Current Functional Impairments (Reported) Functional Limitations- ADL's pt has lexis/doff his shirts/ jacket with her R arm first unable to reach overhead to his shelf He uses his L arm to lift most of the time Functional Limitations- Recreation/ unable to play frisbee at this Hobbies point PT-OP-C Subjective Start: 06/22/20 13:02 Freq: Status: Active Protocol: Document 07/04/20 08:14 HH (Rec: 07/04/20 08:58 HH [id number]) OP-PT Subjective Patient Comments Patient Comments Im getting better and i could lift and reach over for stuff and it doesnt keep me awake at night now. Patient Reported Progress Improving PT-OP-E Functional Tests Start: 06/22/20 13:02 Freq: Status: Active Protocol: Document 06/22/20 13:02 HH (Rec: 06/22/20 13:31 [email or web address]) Functional Tests Apley's Scratch Test Action 2- Left T3 Action 2- Right C7 Action 3- Left T4 Action 3- Right R SIJ PT-OP-F Manual Assessment Start: 06/22/20 13:02 Freq: Status: Active Protocol: Document 06/22/20 13:02 HH (Rec: 06/22/20 13:31 [email or web address]) Manual Assessments Soft Tissue Assessment Soft Tissue Mobility Assessment pain and tenderness at subscapularis, teres minor and infraspinatus muscle atrophy at infraspinatus and teres minor area PT-OP-K Range of Motion Start: 06/22/20 13:02 Freq: Status: Active Protocol: Document 06/22/20 13:02 HH (Rec: 06/22/20 13:31 [email or web address]) Shoulder Goniometric Range of Motion Shoulder Right Passive Shoulder ROM WFL No Testing Position Supine Flexion 145 Abduction 95 External Rotation at 90 degrees 45 Abduction Internal Rotation 25 Comments pain at end range for all motions. Right Active Shoulder ROM WFL No Testing Position Standing Flexion 115 Extension 35 Abduction 75 External Rotation at 90 degrees 35 Abduction Internal Rotation 25 Comments pain at end range for all motions. Left Active Shoulder ROM WFL Yes Testing Position Standing Flexion 155 Extension 50 Abduction 145 External Rotation at 90 degrees 85 Abduction Internal Rotation 80 PT-OP-L Special Tests Start: 06/22/20 13:02 Freq: Status: Active Protocol: Document 06/22/20 13:02 HH (Rec: 06/22/20 13:31 [email or web address]) Special Tests Cervical Spine Special Tests Foraminal Compression Test Results -ve Spurling's Test Test Results -ve Shoulder Special Tests Apprehension Test Test Results +ve R Comments improve shoulder ER noted with posterior glide Neer Impingement Test Results +VE R Ramirez Daniel Impingement Test Results +ve R Grind Labrum Test Results -ve Empty Can Test Results +ve Comments anterior shoulder pain at R Drop Arm Rotator Cuff Test Results -ve Comments but weakness noted and pain to get to the position AC Joint Compression Test Results -ve PT-OP-M Strength Start: 06/22/20 13:02 Freq: Status: Active Protocol: Document 06/22/20 13:02 (Rec: 06/22/20 13:31 [email or web address]) Shoulder Strength Shoulder Manual Muscle Testing Right Flexion 4- Good- Extension 4- Good- Abduction (C5) 3+ Fair+ External Rotation 3+ Fair+ Internal Rotation 3+ Fair+ Comments pain noted for all resisted motions Left Flexion 5 Normal Extension 5 Normal Abduction (C5) 5 Normal Adduction 5 Normal External Rotation 5 Normal Internal Rotation 5 Normal Elbow/Forearm Strength Elbow and Forearm Manual Muscle Testing Left Flexion (C6) 5 Normal Extension (C7) 5 Normal Right Flexion (C6) 4+ Good+ Extension (C7) 4+ Good+ Comments no pain noted. PT-OP-Q Treatments Start: 06/22/20 13:02 Freq: Status: Active Protocol: Document 07/04/20 08:14 (Rec: 07/04/20 08:58 [id number]) Cardio Equipment Upper Body Ergometer (UBE) Duration (Minutes) 4 Seat Position 12 Height 5 Other 30 sec each directoin Therapeutic Exercises Sidelying Exercises shoulder abduction Side bilateral Reps/Minutes 8x2 Comments pain noted open book Side bilateral Reps/Minutes 8x2 Sitting Exercises pulleys Sitting Exercise Name flexion and abduction Side bilateral Reps/Minutes 4 mins total Standing Exercises shoulder shrug Side bilateral Equipment Used 10lbs DB Reps/Minutes 10 x2 bicep tendon stretch Side right Equipment Used level 5 band Reps/Minutes 10s stretch Manual Therapy Treatment Soft Tissue Mobilization RTCs Body Location R shoulder Mobilization Type Sustained Pressure,Trigger Point Release Intensity/Depth Moderate Body Position Supine Comments significant pain noted at infraspinatus, subscapularis and teres minor. Pain reduced after manual therapy Joint Mobilizations GHJ Joint R Direction posterior Grade III Body Position Supine Reps/Duration 5 mins PT-OP-T Assessment and Plan Start: 06/22/20 13:02 Freq: Status: Active Protocol: Document 07/04/20 08:14 (Rec: 07/04/20 08:58 [id number]) Physical Therapy Assessment Goals HEP Impairment pt does not have HEP Assisted Goal (LTG) pt will comply to HEP safely and independently at home LTG Duration 4 weeks strength Impairment pt has limited R shoulder strength Short Term Goal (STG) pt will improve his R shoulder strength by 1/2 grade STG Duration 4weeks Assisted Goal (LTG) pt will improve his R shoulder stregnth by 1 full grade so he can reach overhead for objects > 5lbs without increased pain. LTG Duration 8 weeks ROM Impairment pt has very limited ROM at R shoulder Short Term Goal (STG) pt will improve his R shoulder ROM in all directions by 15 degrees STG Duration 4 weeks Honey Processor Goal (LTG) pt will improve his R shoulder ROM in all directions by 20 degrees in order for him to lexis/doff clothes and reach overhead. LTG Duration 8 weeks quickdash Impairment pt scores 43 on quick dash Short Term Goal (STG) pt will score 30 and less on quick dash to improve his mobility and strength STG Duration 4 weeks Honey Processor Goal (LTG) pt will score 20 and less on quick dash to improve his mobility and strength LTG Duration 8 weeks Assessment Summary Assessment Pt reports good progress with improved ROM and improved sleep. Today focus on ROM and RTc strengthening ex. Pt margy session very well Physical Therapy Plan Frequency and Duration Frequency of Treatment 2x/wkx4, 1x/wkx4 Duration of Treatment 8 weeks Plan of Care Start Date 06/22/20 Plan of Care End Date 08/21/20 Next Visit Focus/Plan Next Note Type Treatment Note Next Visit Plan check cervical ROM sTM at subscap, infra, teres minor posterior glide of GHJ mariel scap retraction TOÑA hdz
--- NOTE | 2020-07-06 09:03 | PT.OTN ---
Current Diagnoses Pain in right shoulder (07/06/20) Unspecified disorder of synovium and tendon, right shoulder (07/06/20) Unspecified disorder of synovium and tendon, right upper arm (07/06/20) Impingement syndrome of right shoulder (07/06/20) Physical Therapy Treatment Note PT-OP-A Visit Information Start: 06/22/20 13:02 Freq: Status: Active Protocol: Document 07/06/20 08:15 (Rec: 07/06/20 09:03 [id number]) Out-Patient Physical Therapy Visit Information Visit Information Visit Type Treatment Note Visit Start Time 08:15 Visit Stop Time 09:00 Total Visit Minutes 45 Visit Number 5/9 Number of ENTRY LEVEL BUYER Visits 0 PT-OP-B Current Condition Start: 06/22/20 13:02 Freq: Status: Active Protocol: Document 06/22/20 13:02 HH (Rec: 06/22/20 13:31 [email or web address]) Current Condition History of Current Condition Onset Date 4years ago Current Complaints Chronic R shoulder pain, difficulty to reach overhead History of Current Condition Pt is a 54yo male here for his chronic R shoulder pain started 4 years ago. It has been getting worse since February,. His pain is 3- 8/10 depends on the activity. Lifting his arm pass > 90 degrees, reaching behind his back aggravates his pain the most. He currently has difficulty sleeping on his R side. He only finds inactivity and taking Naproxen to relieve his pain. He did have a cortisone shot 3 weeks ago which helped his pain but not ROM. Pt had PT years ago for his L shoulder and had successful result. 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 Prior Treatments and Tests Pt stated he had X-ray a few weeks ago but he doesnt have the result. Treatment Goals Patient/Caregiver Goals 1. To be pain free with shoulder movements 2. To be able to play frisbee 3. to be able to reach overhead. Current Functional Impairments (Reported) Functional Limitations- ADL's pt has lexis/doff his shirts/ jacket with her R arm first unable to reach overhead to his shelf He uses his L arm to lift most of the time Functional Limitations- Recreation/ unable to play frisbee at this Hobbies point PT-OP-C Subjective Start: 06/22/20 13:02 Freq: Status: Active Protocol: Document 07/06/20 08:15 HH (Rec: 07/06/20 09:03 [id number]) OP-PT Subjective Patient Comments Patient Comments I had the [employer] shot on friday and my arm still hurts Patient Reported Progress Same PT-OP-E Functional Tests Start: 06/22/20 13:02 Freq: Status: Active Protocol: Document 06/22/20 13:02 HH (Rec: 06/22/20 13:31 [email or web address]) Functional Tests Apley's Scratch Test Action 2- Left T3 Action 2- Right C7 Action 3- Left T4 Action 3- Right R SIJ PT-OP-F Manual Assessment Start: 06/22/20 13:02 Freq: Status: Active Protocol: Document 06/22/20 13:02 HH (Rec: 06/22/20 13:31 [email or web address]) Manual Assessments Soft Tissue Assessment Soft Tissue Mobility Assessment pain and tenderness at subscapularis, teres minor and infraspinatus muscle atrophy at infraspinatus and teres minor area PT-OP-K Range of Motion Start: 06/22/20 13:02 Freq: Status: Active Protocol: Document 06/22/20 13:02 (Rec: 06/22/20 13:31 [email or web address]) Shoulder Goniometric Range of Motion Shoulder Right Passive Shoulder ROM WFL No Testing Position Supine Flexion 145 Abduction 95 External Rotation at 90 degrees 45 Abduction Internal Rotation 25 Comments pain at end range for all motions. Right Active Shoulder ROM WFL No Testing Position Standing Flexion 115 Extension 35 Abduction 75 External Rotation at 90 degrees 35 Abduction Internal Rotation 25 Comments pain at end range for all motions. Left Active Shoulder ROM WFL Yes Testing Position Standing Flexion 155 Extension 50 Abduction 145 External Rotation at 90 degrees 85 Abduction Internal Rotation 80 PT-OP-L Special Tests Start: 06/22/20 13:02 Freq: Status: Active Protocol: Document 06/22/20 13:02 (Rec: 06/22/20 13:31 [email or web address]) Special Tests Cervical Spine Special Tests Foraminal Compression Test Results -ve Spurling's Test Test Results -ve Shoulder Special Tests Apprehension Test Test Results +ve R Comments improve shoulder ER noted with posterior glide Neer Impingement Test Results +VE R Ramirez Daniel Impingement Test Results +ve R Grind Labrum Test Results -ve Empty Can Test Results +ve Comments anterior shoulder pain at R Drop Arm Rotator Cuff Test Results -ve Comments but weakness noted and pain to get to the position AC Joint Compression Test Results -ve PT-OP-M Strength Start: 06/22/20 13:02 Freq: Status: Active Protocol: Document 06/22/20 13:02 (Rec: 06/22/20 13:31 [email or web address]) Shoulder Strength Shoulder Manual Muscle Testing Right Flexion 4- Good- Extension 4- Good- Abduction (C5) 3+ Fair+ External Rotation 3+ Fair+ Internal Rotation 3+ Fair+ Comments pain noted for all resisted motions Left Flexion 5 Normal Extension 5 Normal Abduction (C5) 5 Normal Adduction 5 Normal External Rotation 5 Normal Internal Rotation 5 Normal Elbow/Forearm Strength Elbow and Forearm Manual Muscle Testing Left Flexion (C6) 5 Normal Extension (C7) 5 Normal Right Flexion (C6) 4+ Good+ Extension (C7) 4+ Good+ Comments no pain noted. PT-OP-Q Treatments Start: 06/22/20 13:02 Freq: Status: Active Protocol: Document 07/06/20 08:15 (Rec: 07/06/20 09:03 [id number]) Cardio Equipment Upper Body Ergometer (UBE) Duration (Minutes) 5 Seat Position 12 Height 5 Other 30 sec each directoin Therapeutic Exercises Sidelying Exercises shoulder abduction Side bilateral Reps/Minutes 8x2 Comments pain noted open book Side bilateral Reps/Minutes 8x2 Sitting Exercises pulleys Sitting Exercise Name flexion and abduction Side bilateral Reps/Minutes 4 mins total Standing Exercises shoulder shrug Side bilateral Equipment Used 10lbs DB Reps/Minutes 10 x2 scap pinch Side bilateral Equipment Used level 1 band Reps/Minutes 10 x 2 Comments for HEP Manual Therapy Treatment Soft Tissue Mobilization RTCs Body Location R shoulder Mobilization Type Sustained Pressure,Trigger Point Release Intensity/Depth Moderate Body Position Supine Comments reduced pain noted at infraspinatus, and pecs Joint Mobilizations GHJ Joint R Direction posterior Grade III Body Position Supine Reps/Duration 4 mins Comments pt shows less muscle guarding PT-OP-T Assessment and Plan Start: 06/22/20 13:02 Freq: Status: Active Protocol: Document 07/06/20 08:15 (Rec: 07/06/20 09:03 [id number]) Physical Therapy Assessment Goals HEP Impairment pt does not have HEP Nursing Home Goal (LTG) pt will comply to HEP safely and independently at home LTG Duration 4 weeks strength Impairment pt has limited R shoulder strength Short Term Goal (STG) pt will improve his R shoulder strength by 1/2 grade STG Duration 4weeks Reducing Salon Attendant Goal (LTG) pt will improve his R shoulder stregnth by 1 full grade so he can reach overhead for objects > 5lbs without increased pain. LTG Duration 8 weeks ROM Impairment pt has very limited ROM at R shoulder Short Term Goal (STG) pt will improve his R shoulder ROM in all directions by 15 degrees STG Duration 4 weeks Reducing Salon Attendant Goal (LTG) pt will improve his R shoulder ROM in all directions by 20 degrees in order for him to lexis/doff clothes and reach overhead. LTG Duration 8 weeks quickdash Impairment pt scores 43 on quick dash Short Term Goal (STG) pt will score 30 and less on quick dash to improve his mobility and strength STG Duration 4 weeks Nursing Home Goal (LTG) pt will score 20 and less on quick dash to improve his mobility and strength LTG Duration 8 weeks Assessment Summary Assessment pt had his first COVID shot on Friday and has been having arm soreness and pain. Tx focused on manual therapy and ROM ex only. Pt does feel he cont to gain more ROM. Physical Therapy Plan Frequency and Duration Frequency of Treatment 2x/wkx4, 1x/wkx4 Duration of Treatment 8 weeks Plan of Care Start Date 06/22/20 Plan of Care End Date 08/21/20 Next Visit Focus/Plan Next Note Type Treatment Note Next Visit Plan check cervical ROM sTM at subscap, infra, teres minor posterior glide of GHJ mariel scap retraction TOÑA hdz
--- NOTE | 2020-07-11 09:00 | PT.OTN ---
Current Diagnoses Pain in right shoulder (07/11/20) Unspecified disorder of synovium and tendon, right shoulder (07/11/20) Unspecified disorder of synovium and tendon, right upper arm (07/11/20) Impingement syndrome of right shoulder (07/11/20) Physical Therapy Treatment Note PT-OP-A Visit Information Start: 06/22/20 13:02 Freq: Status: Active Protocol: Document 07/11/20 08:15 HH (Rec: 07/11/20 09:00 [id number]) Out-Patient Physical Therapy Visit Information Visit Information Visit Type Treatment Note Visit Start Time 08:15 Visit Stop Time 08:59 Total Visit Minutes 44 Visit Number 6/ Number of RN CORRECTIONS Visits 0 PT-OP-B Current Condition Start: 06/22/20 13:02 Freq: Status: Active Protocol: Document 06/22/20 13:02 HH (Rec: 06/22/20 13:31 [email or web address]) Current Condition History of Current Condition Onset Date 4years ago Current Complaints Chronic R shoulder pain, difficulty to reach overhead History of Current Condition Pt is a 54yo male here for his chronic R shoulder pain started 4 years ago. It has been getting worse since February,. His pain is 3- 8/10 depends on the activity. Lifting his arm pass > 90 degrees, reaching behind his back aggravates his pain the most. He currently has difficulty sleeping on his R side. He only finds inactivity and taking Naproxen to relieve his pain. He did have a cortisone shot 3 weeks ago which helped his pain but not ROM. Pt had PT years ago for his L shoulder and had successful result. 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 Prior Treatments and Tests Pt stated he had X-ray a few weeks ago but he doesnt have the result. Treatment Goals Patient/Caregiver Goals 1. To be pain free with shoulder movements 2. To be able to play frisbee 3. to be able to reach overhead. Current Functional Impairments (Reported) Functional Limitations- ADL's pt has lexis/doff his shirts/ jacket with her R arm first unable to reach overhead to his shelf He uses his L arm to lift most of the time Functional Limitations- Recreation/ unable to play frisbee at this Hobbies point PT-OP-C Subjective Start: 06/22/20 13:02 Freq: Status: Active Protocol: Document 07/11/20 08:15 HH (Rec: 07/11/20 09:00 [id number]) OP-PT Subjective Patient Comments Patient Comments im getting better and i am able to put on my jacket easier. Patient Reported Progress Improving PT-OP-E Functional Tests Start: 06/22/20 13:02 Freq: Status: Active Protocol: Document 06/22/20 13:02 HH (Rec: 06/22/20 13:31 [email or web address]) Functional Tests Apley's Scratch Test Action 2- Left T3 Action 2- Right C7 Action 3- Left T4 Action 3- Right R SIJ PT-OP-F Manual Assessment Start: 06/22/20 13:02 Freq: Status: Active Protocol: Document 06/22/20 13:02 HH (Rec: 06/22/20 13:31 [email or web address]) Manual Assessments Soft Tissue Assessment Soft Tissue Mobility Assessment pain and tenderness at subscapularis, teres minor and infraspinatus muscle atrophy at infraspinatus and teres minor area PT-OP-K Range of Motion Start: 06/22/20 13:02 Freq: Status: Active Protocol: Document 06/22/20 13:02 HH (Rec: 06/22/20 13:31 [email or web address]) Shoulder Goniometric Range of Motion Shoulder Right Passive Shoulder ROM WFL No Testing Position Supine Flexion 145 Abduction 95 External Rotation at 90 degrees 45 Abduction Internal Rotation 25 Comments pain at end range for all motions. Right Active Shoulder ROM WFL No Testing Position Standing Flexion 115 Extension 35 Abduction 75 External Rotation at 90 degrees 35 Abduction Internal Rotation 25 Comments pain at end range for all motions. Left Active Shoulder ROM WFL Yes Testing Position Standing Flexion 155 Extension 50 Abduction 145 External Rotation at 90 degrees 85 Abduction Internal Rotation 80 PT-OP-L Special Tests Start: 06/22/20 13:02 Freq: Status: Active Protocol: Document 06/22/20 13:02 HH (Rec: 06/22/20 13:31 [email or web address]) Special Tests Cervical Spine Special Tests Foraminal Compression Test Results -ve Spurling's Test Test Results -ve Shoulder Special Tests Apprehension Test Test Results +ve R Comments improve shoulder ER noted with posterior glide Neer Impingement Test Results +VE R Ramirez Daniel Impingement Test Results +ve R Grind Labrum Test Results -ve Empty Can Test Results +ve Comments anterior shoulder pain at R Drop Arm Rotator Cuff Test Results -ve Comments but weakness noted and pain to get to the position AC Joint Compression Test Results -ve PT-OP-M Strength Start: 06/22/20 13:02 Freq: Status: Active Protocol: Document 06/22/20 13:02 (Rec: 06/22/20 13:31 [email or web address]) Shoulder Strength Shoulder Manual Muscle Testing Right Flexion 4- Good- Extension 4- Good- Abduction (C5) 3+ Fair+ External Rotation 3+ Fair+ Internal Rotation 3+ Fair+ Comments pain noted for all resisted motions Left Flexion 5 Normal Extension 5 Normal Abduction (C5) 5 Normal Adduction 5 Normal External Rotation 5 Normal Internal Rotation 5 Normal Elbow/Forearm Strength Elbow and Forearm Manual Muscle Testing Left Flexion (C6) 5 Normal Extension (C7) 5 Normal Right Flexion (C6) 4+ Good+ Extension (C7) 4+ Good+ Comments no pain noted. PT-OP-Q Treatments Start: 06/22/20 13:02 Freq: Status: Active Protocol: Document 07/11/20 08:15 (Rec: 07/11/20 09:00 [id number]) Cardio Equipment Upper Body Ergometer (UBE) Duration (Minutes) 5 Seat Position 12 Height 5 Other 30 sec each directoin Therapeutic Exercises Supine Exercises PVC flexion Side bilateral Reps/Minutes 8 x 1 Comments cues with SA punch shoulder punch Side bilateral Equipment Used 2 lbs DB Sidelying Exercises shoulder abduction Side bilateral Equipment Used 2lbs DB Reps/Minutes 8x2 Comments pain noted open book Side bilateral Reps/Minutes 8x2 Sitting Exercises pulleys Sitting Exercise Name flexion and abduction Side bilateral Reps/Minutes 4 mins total Standing Exercises scap pinch Side bilateral Equipment Used level 1 band Reps/Minutes 10 x 2 Comments for HEP Manual Therapy Treatment Soft Tissue Mobilization RTCs Body Location R shoulder Mobilization Type Sustained Pressure,Trigger Point Release Intensity/Depth Moderate Body Position Supine Comments minimal pain noted at infraspinatus, and pecs Manual Techniques rhythmic initiation Type passive mobilization Body Position Supine Comments upward rotation, elevation PT-OP-T Assessment and Plan Start: 06/22/20 13:02 Freq: Status: Active Protocol: Document 07/11/20 08:15 (Rec: 07/11/20 09:00 [id number]) Physical Therapy Assessment Goals HEP Impairment pt does not have HEP Assisted Goal (LTG) pt will comply to HEP safely and independently at home LTG Duration 4 weeks strength Impairment pt has limited R shoulder strength Short Term Goal (STG) pt will improve his R shoulder strength by 1/2 grade STG Duration 4weeks Mobile Mechanic Goal (LTG) pt will improve his R shoulder stregnth by 1 full grade so he can reach overhead for objects > 5lbs without increased pain. LTG Duration 8 weeks ROM Impairment pt has very limited ROM at R shoulder Short Term Goal (STG) pt will improve his R shoulder ROM in all directions by 15 degrees STG Duration 4 weeks Assisted Goal (LTG) pt will improve his R shoulder ROM in all directions by 20 degrees in order for him to lexis/doff clothes and reach overhead. LTG Duration 8 weeks quickdash Impairment pt scores 43 on quick dash Short Term Goal (STG) pt will score 30 and less on quick dash to improve his mobility and strength STG Duration 4 weeks Assisted Goal (LTG) pt will score 20 and less on quick dash to improve his mobility and strength LTG Duration 8 weeks Assessment Summary Assessment pt shows good progress who is now able to put jacket on. Today session focused on scap upward rotation and overall shoulder strengtehning. Pt margy session well. Physical Therapy Plan Frequency and Duration Frequency of Treatment 2x/wkx4, 1x/wkx4 Duration of Treatment 8 weeks Plan of Care Start Date 06/22/20 Plan of Care End Date 08/21/20 Next Visit Focus/Plan Next Note Type Treatment Note Next Visit Plan check cervical ROM sTM at subscap, infra, teres minor posterior glide of GHJ mariel scap retraction TOÑA hdz
--- NOTE | 2020-07-13 09:37 | PT-OP ANOTE ---
Pt no show today. Left a voicemail and remind his next appt schedule.
--- NOTE | 2020-07-18 09:01 | PT.OTN ---
Current Diagnoses Pain in right shoulder (07/18/20) Unspecified disorder of synovium and tendon, right shoulder (07/18/20) Unspecified disorder of synovium and tendon, right upper arm (07/18/20) Impingement syndrome of right shoulder (07/18/20) Physical Therapy Treatment Note PT-OP-A Visit Information Start: 06/22/20 13:02 Freq: Status: Active Protocol: Document 07/18/20 08:15 (Rec: 07/18/20 09:01 [id number]) Out-Patient Physical Therapy Visit Information Visit Information Visit Type Treatment Note Visit Start Time 08:15 Visit Stop Time 08:59 Total Visit Minutes 44 Visit Number 7/ Number of INSTRUCTIONAL SUPPORT SPECIALIST Visits 0 PT-OP-B Current Condition Start: 06/22/20 13:02 Freq: Status: Active Protocol: Document 06/22/20 13:02 HH (Rec: 06/22/20 13:31 [email or web address]) Current Condition History of Current Condition Onset Date 4years ago Current Complaints Chronic R shoulder pain, difficulty to reach overhead History of Current Condition Pt is a 54yo male here for his chronic R shoulder pain started 4 years ago. It has been getting worse since February,. His pain is 3- 8/10 depends on the activity. Lifting his arm pass > 90 degrees, reaching behind his back aggravates his pain the most. He currently has difficulty sleeping on his R side. He only finds inactivity and taking Naproxen to relieve his pain. He did have a cortisone shot 3 weeks ago which helped his pain but not ROM. Pt had PT years ago for his L shoulder and had successful result. 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 Prior Treatments and Tests Pt stated he had X-ray a few weeks ago but he doesnt have the result. Treatment Goals Patient/Caregiver Goals 1. To be pain free with shoulder movements 2. To be able to play frisbee 3. to be able to reach overhead. Current Functional Impairments (Reported) Functional Limitations- ADL's pt has lexis/doff his shirts/ jacket with her R arm first unable to reach overhead to his shelf He uses his L arm to lift most of the time Functional Limitations- Recreation/ unable to play frisbee at this Hobbies point PT-OP-C Subjective Start: 06/22/20 13:02 Freq: Status: Active Protocol: Document 07/18/20 08:15 HH (Rec: 07/18/20 09:01 [id number]) OP-PT Subjective Patient Comments Patient Comments Im doing okay but i got sore from last visit. However, i havent been doing my home exercises. Patient Reported Progress Same PT-OP-E Functional Tests Start: 06/22/20 13:02 Freq: Status: Active Protocol: Document 06/22/20 13:02 HH (Rec: 06/22/20 13:31 [email or web address]) Functional Tests Apley's Scratch Test Action 2- Left T3 Action 2- Right C7 Action 3- Left T4 Action 3- Right R SIJ PT-OP-F Manual Assessment Start: 06/22/20 13:02 Freq: Status: Active Protocol: Document 06/22/20 13:02 HH (Rec: 06/22/20 13:31 [email or web address]) Manual Assessments Soft Tissue Assessment Soft Tissue Mobility Assessment pain and tenderness at subscapularis, teres minor and infraspinatus muscle atrophy at infraspinatus and teres minor area PT-OP-K Range of Motion Start: 06/22/20 13:02 Freq: Status: Active Protocol: Document 06/22/20 13:02 HH (Rec: 06/22/20 13:31 [email or web address]) Shoulder Goniometric Range of Motion Shoulder Right Passive Shoulder ROM WFL No Testing Position Supine Flexion 145 Abduction 95 External Rotation at 90 degrees 45 Abduction Internal Rotation 25 Comments pain at end range for all motions. Right Active Shoulder ROM WFL No Testing Position Standing Flexion 115 Extension 35 Abduction 75 External Rotation at 90 degrees 35 Abduction Internal Rotation 25 Comments pain at end range for all motions. Left Active Shoulder ROM WFL Yes Testing Position Standing Flexion 155 Extension 50 Abduction 145 External Rotation at 90 degrees 85 Abduction Internal Rotation 80 PT-OP-L Special Tests Start: 06/22/20 13:02 Freq: Status: Active Protocol: Document 06/22/20 13:02 HH (Rec: 06/22/20 13:31 [email or web address]) Special Tests Cervical Spine Special Tests Foraminal Compression Test Results -ve Spurling's Test Test Results -ve Shoulder Special Tests Apprehension Test Test Results +ve R Comments improve shoulder ER noted with posterior glide Neer Impingement Test Results +VE R Ramirez Daniel Impingement Test Results +ve R Grind Labrum Test Results -ve Empty Can Test Results +ve Comments anterior shoulder pain at R Drop Arm Rotator Cuff Test Results -ve Comments but weakness noted and pain to get to the position AC Joint Compression Test Results -ve PT-OP-M Strength Start: 06/22/20 13:02 Freq: Status: Active Protocol: Document 06/22/20 13:02 (Rec: 06/22/20 13:31 [email or web address]) Shoulder Strength Shoulder Manual Muscle Testing Right Flexion 4- Good- Extension 4- Good- Abduction (C5) 3+ Fair+ External Rotation 3+ Fair+ Internal Rotation 3+ Fair+ Comments pain noted for all resisted motions Left Flexion 5 Normal Extension 5 Normal Abduction (C5) 5 Normal Adduction 5 Normal External Rotation 5 Normal Internal Rotation 5 Normal Elbow/Forearm Strength Elbow and Forearm Manual Muscle Testing Left Flexion (C6) 5 Normal Extension (C7) 5 Normal Right Flexion (C6) 4+ Good+ Extension (C7) 4+ Good+ Comments no pain noted. PT-OP-Q Treatments Start: 06/22/20 13:02 Freq: Status: Active Protocol: Document 07/18/20 08:15 (Rec: 07/18/20 09:01 [id number]) Cardio Equipment Upper Body Ergometer (UBE) Duration (Minutes) 5 Seat Position 12 Height 5 Other 30 sec each directoin Therapeutic Exercises Supine Exercises PVC flexion Side bilateral Equipment Used 4lbs ankle weight on PVC Reps/Minutes 8 x 1 Comments cues with SA punch shoulder punch Side bilateral Equipment Used 2 lbs DB Sidelying Exercises open book Side bilateral Reps/Minutes 10 x1 Sitting Exercises pulleys Sitting Exercise Name flexion and abduction Side bilateral Reps/Minutes 4 mins total Standing Exercises shoulder pull apart Equipment Used level 1 Reps/Minutes 8x 2 Manual Therapy Treatment Soft Tissue Mobilization bicep tendon Mobilization Type Sustained Pressure,Trigger Point Release Intensity/Depth Deep Body Position Supine Comments with elbow flexion and extenison RTCs Body Location R shoulder Mobilization Type Sustained Pressure,Trigger Point Release Intensity/Depth Moderate Body Position Supine Comments no pain noted at infraspinatus , and pecs, but pain at subscapularis Manual Techniques rhythmic initiation Type passive mobilization Body Position Supine Comments less muscle guarding noted. upward rotation, elevation PT-OP-T Assessment and Plan Start: 06/22/20 13:02 Freq: Status: Active Protocol: Document 07/18/20 08:15 (Rec: 07/18/20 09:01 [id number]) Physical Therapy Assessment Goals HEP Impairment pt does not have HEP Usp Goal (LTG) pt will comply to HEP safely and independently at home LTG Duration 4 weeks strength Impairment pt has limited R shoulder strength Short Term Goal (STG) pt will improve his R shoulder strength by 1/2 grade STG Duration 4weeks Usp Goal (LTG) pt will improve his R shoulder stregnth by 1 full grade so he can reach overhead for objects > 5lbs without increased pain. LTG Duration 8 weeks ROM Impairment pt has very limited ROM at R shoulder Short Term Goal (STG) pt will improve his R shoulder ROM in all directions by 15 degrees STG Duration 4 weeks Compressor Service Technician Goal (LTG) pt will improve his R shoulder ROM in all directions by 20 degrees in order for him to lexis/doff clothes and reach overhead. LTG Duration 8 weeks quickdash Impairment pt scores 43 on quick dash Short Term Goal (STG) pt will score 30 and less on quick dash to improve his mobility and strength STG Duration 4 weeks Usp Goal (LTG) pt will score 20 and less on quick dash to improve his mobility and strength LTG Duration 8 weeks Assessment Summary Assessment pt shows improved scapular movements and less muscle guarding today. However, pt stated he has not been doing home exercises and spent time to educate him the importance of it. Physical Therapy Plan Frequency and Duration Frequency of Treatment 2x/wkx4, 1x/wkx4 Duration of Treatment 8 weeks Plan of Care Start Date 06/22/20 Plan of Care End Date 08/21/20 Therapeutic Interventions Therapeutic Interventions Gait Training,Home Exercise Program,Joint Mobilizations, Manual Therapy,Neuromuscular Re-education,Patient/Caregiver Education,Self-Care/Home Management,Soft Tissue Mobilization,Taping, Therapeutic Activities, Therapeutic Exercises Modalities Biofeedback,Cold Pack/Ice Massage,Electric Stimulation, Hot Packs,Infrared Therapy, Iontophoresis,Ultrasound Next Visit Focus/Plan Next Note Type Treatment Note Next Visit Plan check cervical ROM sTM at subscap, infra, teres minor posterior glide of GHJ mariel scap retraction AAROM withcane
--- NOTE | 2020-07-25 11:17 | PT.OTN ---
Current Diagnoses Pain in right shoulder (07/25/20) Unspecified disorder of synovium and tendon, right shoulder (07/25/20) Unspecified disorder of synovium and tendon, right upper arm (07/25/20) Impingement syndrome of right shoulder (07/25/20) Physical Therapy Treatment Note PT-OP-A Visit Information Start: 06/22/20 13:02 Freq: Status: Active Protocol: Document 07/25/20 10:37 HH (Rec: 07/25/20 11:17 HH [id number]) Out-Patient Physical Therapy Visit Information Visit Information Visit Type Treatment Note Visit Start Time 08:15 Visit Stop Time 08:59 Total Visit Minutes 44 Visit Number 8/9 Number of MEDICARE INTERVIEWER Visits 0 PT-OP-B Current Condition Start: 06/22/20 13:02 Freq: Status: Active Protocol: Document 06/22/20 13:02 HH (Rec: 06/22/20 13:31 HH [email or web address]) Current Condition History of Current Condition Onset Date 4years ago Current Complaints Chronic R shoulder pain, difficulty to reach overhead History of Current Condition Pt is a 54yo male here for his chronic R shoulder pain started 4 years ago. It has been getting worse since February,. His pain is 3- 8/10 depends on the activity. Lifting his arm pass > 90 degrees, reaching behind his back aggravates his pain the most. He currently has difficulty sleeping on his R side. He only finds inactivity and taking Naproxen to relieve his pain. He did have a cortisone shot 3 weeks ago which helped his pain but not ROM. Pt had PT years ago for his L shoulder and had successful result. 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 Prior Treatments and Tests Pt stated he had X-ray a few weeks ago but he doesnt have the result. Treatment Goals Patient/Caregiver Goals 1. To be pain free with shoulder movements 2. To be able to play frisbee 3. to be able to reach overhead. Current Functional Impairments (Reported) Functional Limitations- ADL's pt has lexis/doff his shirts/ jacket with her R arm first unable to reach overhead to his shelf He uses his L arm to lift most of the time Functional Limitations- Recreation/ unable to play frisbee at this Hobbies point PT-OP-C Subjective Start: 06/22/20 13:02 Freq: Status: Active Protocol: Document 07/25/20 10:37 HH (Rec: 07/25/20 11:17 [id number]) OP-PT Subjective Patient Comments Patient Comments Evelyn been doing my exercises more often but mostly mariel only. But i need a reminder for the band pull apart Patient Reported Progress Same PT-OP-E Functional Tests Start: 06/22/20 13:02 Freq: Status: Active Protocol: Document 06/22/20 13:02 HH (Rec: 06/22/20 13:31 [email or web address]) Functional Tests Apley's Scratch Test Action 2- Left T3 Action 2- Right C7 Action 3- Left T4 Action 3- Right R SIJ PT-OP-F Manual Assessment Start: 06/22/20 13:02 Freq: Status: Active Protocol: Document 06/22/20 13:02 HH (Rec: 06/22/20 13:31 [email or web address]) Manual Assessments Soft Tissue Assessment Soft Tissue Mobility Assessment pain and tenderness at subscapularis, teres minor and infraspinatus muscle atrophy at infraspinatus and teres minor area PT-OP-K Range of Motion Start: 06/22/20 13:02 Freq: Status: Active Protocol: Document 06/22/20 13:02 HH (Rec: 06/22/20 13:31 [email or web address]) Shoulder Goniometric Range of Motion Shoulder Right Passive Shoulder ROM WFL No Testing Position Supine Flexion 145 Abduction 95 External Rotation at 90 degrees 45 Abduction Internal Rotation 25 Comments pain at end range for all motions. Right Active Shoulder ROM WFL No Testing Position Standing Flexion 115 Extension 35 Abduction 75 External Rotation at 90 degrees 35 Abduction Internal Rotation 25 Comments pain at end range for all motions. Left Active Shoulder ROM WFL Yes Testing Position Standing Flexion 155 Extension 50 Abduction 145 External Rotation at 90 degrees 85 Abduction Internal Rotation 80 PT-OP-L Special Tests Start: 06/22/20 13:02 Freq: Status: Active Protocol: Document 06/22/20 13:02 HH (Rec: 06/22/20 13:31 [email or web address]) Special Tests Cervical Spine Special Tests Foraminal Compression Test Results -ve Spurling's Test Test Results -ve Shoulder Special Tests Apprehension Test Test Results +ve R Comments improve shoulder ER noted with posterior glide Neer Impingement Test Results +VE R Ramirez Daniel Impingement Test Results +ve R Grind Labrum Test Results -ve Empty Can Test Results +ve Comments anterior shoulder pain at R Drop Arm Rotator Cuff Test Results -ve Comments but weakness noted and pain to get to the position AC Joint Compression Test Results -ve PT-OP-M Strength Start: 06/22/20 13:02 Freq: Status: Active Protocol: Document 06/22/20 13:02 (Rec: 06/22/20 13:31 [email or web address]) Shoulder Strength Shoulder Manual Muscle Testing Right Flexion 4- Good- Extension 4- Good- Abduction (C5) 3+ Fair+ External Rotation 3+ Fair+ Internal Rotation 3+ Fair+ Comments pain noted for all resisted motions Left Flexion 5 Normal Extension 5 Normal Abduction (C5) 5 Normal Adduction 5 Normal External Rotation 5 Normal Internal Rotation 5 Normal Elbow/Forearm Strength Elbow and Forearm Manual Muscle Testing Left Flexion (C6) 5 Normal Extension (C7) 5 Normal Right Flexion (C6) 4+ Good+ Extension (C7) 4+ Good+ Comments no pain noted. PT-OP-Q Treatments Start: 06/22/20 13:02 Freq: Status: Active Protocol: Document 07/25/20 10:37 (Rec: 07/25/20 11:17 [id number]) Cardio Equipment Upper Body Ergometer (UBE) Duration (Minutes) 5 Seat Position 12 Height 6 Other 30 sec each directoin Therapeutic Exercises Supine Exercises PVC flexion Side bilateral Equipment Used 4lbs ankle weight on PVC Reps/Minutes 8 x 1 Comments cues with SA punch Sidelying Exercises shoulder abduction Side bilateral Equipment Used 2lbs DB, then 1 lb DB Reps/Minutes 8x2 Comments pain noted at the first 50 degrees. horizontal abduction Side right Reps/Minutes 8x2 Sitting Exercises pulleys Sitting Exercise Name flexion and abduction Side bilateral Reps/Minutes 4 mins total Standing Exercises shoulder pull apart Equipment Used level 1 Reps/Minutes 8x 2 shoulder ER Reps/Minutes 8x2 scap pinch Side bilateral Equipment Used level 1 band Reps/Minutes 10 x 2 Comments for HEP Manual Therapy Treatment Soft Tissue Mobilization bicep tendon Mobilization Type Sustained Pressure,Trigger Point Release Intensity/Depth Deep Body Position Supine Comments with elbow flexion and extenison RTCs Body Location R shoulder Mobilization Type Sustained Pressure,Trigger Point Release Intensity/Depth Moderate Body Position Supine Comments no pain noted at infraspinatus , and pecs, but pain at subscapularis Joint Mobilizations GHJ Direction posterior Grade III Body Position Supine Reps/Duration 4 mins PT-OP-T Assessment and Plan Start: 06/22/20 13:02 Freq: Status: Active Protocol: Document 07/25/20 10:37 HH (Rec: 07/25/20 11:17 HH [id number]) Physical Therapy Assessment Goals HEP Impairment pt does not have HEP Fdc Goal (LTG) pt will comply to HEP safely and independently at home LTG Duration 4 weeks strength Impairment pt has limited R shoulder strength Short Term Goal (STG) pt will improve his R shoulder strength by 1/2 grade STG Duration 4weeks Fdc Goal (LTG) pt will improve his R shoulder stregnth by 1 full grade so he can reach overhead for objects > 5lbs without increased pain. LTG Duration 8 weeks ROM Impairment pt has very limited ROM at R shoulder Short Term Goal (STG) pt will improve his R shoulder ROM in all directions by 15 degrees STG Duration 4 weeks Admitting Counselor Goal (LTG) pt will improve his R shoulder ROM in all directions by 20 degrees in order for him to lexis/doff clothes and reach overhead. LTG Duration 8 weeks quickdash Impairment pt scores 43 on quick dash Short Term Goal (STG) pt will score 30 and less on quick dash to improve his mobility and strength STG Duration 4 weeks Admitting Counselor Goal (LTG) pt will score 20 and less on quick dash to improve his mobility and strength LTG Duration 8 weeks Assessment Summary Assessment pt has less pain to pressure at RTC region. Painful arc still exists mostly at 90 degrees but his flexion and abd are close to WNL except reaching behind his back. Pt needed cues for band pull apart exercise Physical Therapy Plan Frequency and Duration Frequency of Treatment 2x/wkx4, 1x/wkx4 Duration of Treatment 8 weeks Plan of Care Start Date 06/22/20 Plan of Care End Date 08/21/20 Therapeutic Interventions Therapeutic Interventions Gait Training,Home Exercise Program,Joint Mobilizations, Manual Therapy,Neuromuscular Re-education,Patient/Caregiver Education,Self-Care/Home Management,Soft Tissue Mobilization,Taping, Therapeutic Activities, Therapeutic Exercises Modalities Biofeedback,Cold Pack/Ice Massage,Electric Stimulation, Hot Packs,Infrared Therapy, Iontophoresis,Ultrasound Next Visit Focus/Plan Next Note Type Treatment Note Next Visit Plan check cervical ROM sTM at subscap, infra, teres minor posterior glide of GHJ mariel scap retraction TOÑA hdz
--- NOTE | 2020-08-08 11:16 | PT.OTN ---
Current Diagnoses Pain in right shoulder (08/08/20) Unspecified disorder of synovium and tendon, right shoulder (08/08/20) Unspecified disorder of synovium and tendon, right upper arm (08/08/20) Impingement syndrome of right shoulder (08/08/20) Physical Therapy Treatment Note PT-OP-A Visit Information Start: 06/22/20 13:02 Freq: Status: Active Protocol: Document 08/08/20 10:34 HH (Rec: 08/08/20 11:15 [id number]) Out-Patient Physical Therapy Visit Information Visit Information Visit Type Treatment Note Visit Start Time 10:32 Visit Stop Time 11:15 Total Visit Minutes 43 Visit Number 12/21 Number of SHOCHET Visits 0 PT-OP-B Current Condition Start: 06/22/20 13:02 Freq: Status: Active Protocol: Document 06/22/20 13:02 HH (Rec: 06/22/20 13:31 [email or web address]) Current Condition History of Current Condition Onset Date 4years ago Current Complaints Chronic R shoulder pain, difficulty to reach overhead History of Current Condition Pt is a 54yo male here for his chronic R shoulder pain started 4 years ago. It has been getting worse since February,. His pain is 3- 8/10 depends on the activity. Lifting his arm pass > 90 degrees, reaching behind his back aggravates his pain the most. He currently has difficulty sleeping on his R side. He only finds inactivity and taking Naproxen to relieve his pain. He did have a cortisone shot 3 weeks ago which helped his pain but not ROM. Pt had PT years ago for his L shoulder and had successful result. 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 Prior Treatments and Tests Pt stated he had X-ray a few weeks ago but he doesnt have the result. Treatment Goals Patient/Caregiver Goals 1. To be pain free with shoulder movements 2. To be able to play frisbee 3. to be able to reach overhead. Current Functional Impairments (Reported) Functional Limitations- ADL's pt has lexis/doff his shirts/ jacket with her R arm first unable to reach overhead to his shelf He uses his L arm to lift most of the time Functional Limitations- Recreation/ unable to play frisbee at this Hobbies point PT-OP-C Subjective Start: 06/22/20 13:02 Freq: Status: Active Protocol: Document 08/08/20 10:34 HH (Rec: 08/08/20 11:15 [id number]) OP-PT Subjective Patient Comments Patient Comments Evelyn been lazy with my exercises but i am able to more with shoulder. It is still weak in general Patient Reported Progress Improving PT-OP-E Functional Tests Start: 06/22/20 13:02 Freq: Status: Active Protocol: Document 06/22/20 13:02 HH (Rec: 06/22/20 13:31 [email or web address]) Functional Tests Apley's Scratch Test Action 2- Left T3 Action 2- Right C7 Action 3- Left T4 Action 3- Right R SIJ PT-OP-F Manual Assessment Start: 06/22/20 13:02 Freq: Status: Active Protocol: Document 06/22/20 13:02 HH (Rec: 06/22/20 13:31 [email or web address]) Manual Assessments Soft Tissue Assessment Soft Tissue Mobility Assessment pain and tenderness at subscapularis, teres minor and infraspinatus muscle atrophy at infraspinatus and teres minor area PT-OP-K Range of Motion Start: 06/22/20 13:02 Freq: Status: Active Protocol: Document 06/22/20 13:02 HH (Rec: 06/22/20 13:31 [email or web address]) Shoulder Goniometric Range of Motion Shoulder Right Passive Shoulder ROM WFL No Testing Position Supine Flexion 145 Abduction 95 External Rotation at 90 degrees 45 Abduction Internal Rotation 25 Comments pain at end range for all motions. Right Active Shoulder ROM WFL No Testing Position Standing Flexion 115 Extension 35 Abduction 75 External Rotation at 90 degrees 35 Abduction Internal Rotation 25 Comments pain at end range for all motions. Left Active Shoulder ROM WFL Yes Testing Position Standing Flexion 155 Extension 50 Abduction 145 External Rotation at 90 degrees 85 Abduction Internal Rotation 80 PT-OP-L Special Tests Start: 06/22/20 13:02 Freq: Status: Active Protocol: Document 06/22/20 13:02 HH (Rec: 06/22/20 13:31 [email or web address]) Special Tests Cervical Spine Special Tests Foraminal Compression Test Results -ve Spurling's Test Test Results -ve Shoulder Special Tests Apprehension Test Test Results +ve R Comments improve shoulder ER noted with posterior glide Neer Impingement Test Results +VE R Ramirez Daniel Impingement Test Results +ve R Grind Labrum Test Results -ve Empty Can Test Results +ve Comments anterior shoulder pain at R Drop Arm Rotator Cuff Test Results -ve Comments but weakness noted and pain to get to the position AC Joint Compression Test Results -ve PT-OP-M Strength Start: 06/22/20 13:02 Freq: Status: Active Protocol: Document 06/22/20 13:02 (Rec: 06/22/20 13:31 [email or web address]) Shoulder Strength Shoulder Manual Muscle Testing Right Flexion 4- Good- Extension 4- Good- Abduction (C5) 3+ Fair+ External Rotation 3+ Fair+ Internal Rotation 3+ Fair+ Comments pain noted for all resisted motions Left Flexion 5 Normal Extension 5 Normal Abduction (C5) 5 Normal Adduction 5 Normal External Rotation 5 Normal Internal Rotation 5 Normal Elbow/Forearm Strength Elbow and Forearm Manual Muscle Testing Left Flexion (C6) 5 Normal Extension (C7) 5 Normal Right Flexion (C6) 4+ Good+ Extension (C7) 4+ Good+ Comments no pain noted. PT-OP-Q Treatments Start: 06/22/20 13:02 Freq: Status: Active Protocol: Document 08/08/20 10:34 (Rec: 08/08/20 11:15 [id number]) Cardio Equipment Upper Body Ergometer (UBE) Duration (Minutes) 5 Seat Position 12 Height 6 Other 30 sec each directoin Therapeutic Exercises Sidelying Exercises shoulder ER Equipment Used 2 lbs DB Reps/Minutes 8 x 1 shoulder abduction Side bilateral Equipment Used 2lbs DB, then 1 lb DB Reps/Minutes 8x2 Comments pain noted at the first 50 degrees. horizontal abduction Side right Reps/Minutes 8x2 Sitting Exercises shoulder press Equipment Used PVC Reps/Minutes 10 x 2 pulleys Sitting Exercise Name flexion and abduction Side bilateral Reps/Minutes 4 mins total Standing Exercises shoulder pull apart Equipment Used level 1 Reps/Minutes 8x 2 scap pinch Side bilateral Equipment Used level 1 band Reps/Minutes 10 x 2 Comments for HEP Manual Therapy Treatment Soft Tissue Mobilization bicep tendon Mobilization Type Sustained Pressure,Trigger Point Release Intensity/Depth Deep Body Position Supine Comments with elbow flexion and extenison RTCs Body Location R shoulder Mobilization Type Sustained Pressure,Trigger Point Release Intensity/Depth Moderate Body Position Supine Comments no pain noted at infraspinatus , and pecs, PT-OP-T Assessment and Plan Start: 06/22/20 13:02 Freq: Status: Active Protocol: Document 08/08/20 10:34 HH (Rec: 08/08/20 11:15 HH [id number]) Physical Therapy Assessment Goals HEP Impairment pt does not have HEP Detention Goal (LTG) pt will comply to HEP safely and independently at home LTG Duration 4 weeks strength Impairment pt has limited R shoulder strength Short Term Goal (STG) pt will improve his R shoulder strength by 1/2 grade STG Duration 4weeks Detention Goal (LTG) pt will improve his R shoulder stregnth by 1 full grade so he can reach overhead for objects > 5lbs without increased pain. LTG Duration 8 weeks ROM Impairment pt has very limited ROM at R shoulder Short Term Goal (STG) pt will improve his R shoulder ROM in all directions by 15 degrees STG Duration 4 weeks Detention Goal (LTG) pt will improve his R shoulder ROM in all directions by 20 degrees in order for him to lexis/doff clothes and reach overhead. LTG Duration 8 weeks quickdash Impairment pt scores 43 on quick dash Short Term Goal (STG) pt will score 30 and less on quick dash to improve his mobility and strength STG Duration 4 weeks Applications Consultant Goal (LTG) pt will score 20 and less on quick dash to improve his mobility and strength LTG Duration 8 weeks Assessment Summary Assessment pt stated that he has not been compliant to HEP since he is moving to [place]. pt's benefit also exhausted and needed new auth to continue. This might be pt's last visit so provided consolidated HEP for him today. Will cont therapy 1x/ wk x 4 weeks if his insurance approves his further visits. Physical Therapy Plan Frequency and Duration Frequency of Treatment 2x/wkx4, 1x/wkx4 Duration of Treatment 8 weeks Plan of Care Start Date 06/22/20 Plan of Care End Date 08/21/20 Therapeutic Interventions Therapeutic Interventions Gait Training,Home Exercise Program,Joint Mobilizations, Manual Therapy,Neuromuscular Re-education,Patient/Caregiver Education,Self-Care/Home Management,Soft Tissue Mobilization,Taping, Therapeutic Activities, Therapeutic Exercises Modalities Biofeedback,Cold Pack/Ice Massage,Electric Stimulation, Hot Packs,Infrared Therapy, Iontophoresis,Ultrasound Next Visit Focus/Plan Next Note Type Treatment Note Next Visit Plan check cervical ROM sTM at subscap, infra, teres minor posterior glide of GHJ mariel scap retraction TOÑA hdz
--- NOTE | 2020-08-28 12:54 | PT.OPPOC ---
Physical, Occupational & Speech Therapy At [facility] Current Diagnoses Pain in right shoulder (08/08/20) Unspecified disorder of synovium and tendon, right shoulder (08/08/20) Unspecified disorder of synovium and tendon, right upper arm (08/08/20) Impingement syndrome of right shoulder (08/08/20) Visit Care Team Role Provider Type Jarod Raymond MD Primary Care Provider Non-Staff Specialty: Family Practice Address: [address] , [place], [address] Email: Hai Munoz PA-C Attending Provider Non-Staff Referring Provider Specialty: Nursing Address: [address], [place], [address] Email: Plan Of Care PT-OP-T Assessment and Plan Start: 06/22/20 13:02 Freq: Status: Active Protocol: Document 08/28/20 12:45 (Rec: 08/28/20 12:54 [email or web address]) Physical Therapy Assessment Goals HEP Impairment pt does not have HEP Short Term Goal (STG) cont in progress 08/28 pt stated he has not been compliant with HEP since he is busy moving to [place]. Women'S Activities Adviser Goal (LTG) pt will comply to HEP safely and independently at home LTG Duration 4 weeks strength Impairment pt has limited R shoulder strength Short Term Goal (STG) pt will improve his R shoulder strength by 1/2 grade 08/28 from previous sessions, pt's R shoulder strength is grossly 4/5 with pain at 90 degrees abduction. STG Duration 4weeks Women'S Activities Adviser Goal (LTG) pt will improve his R shoulder stregnth by 1 full grade so he can reach overhead for objects > 5lbs without increased pain. LTG Duration 8 weeks ROM Impairment pt has very limited ROM at R shoulder Short Term Goal (STG) goal met 08/28 per EMR, pt has close to full AROM on R shoulder except reaching behind his back up to T12 region. pt will improve his R shoulder ROM in all directions by 15 degrees STG Duration 4 weeks Women'S Activities Adviser Goal (LTG) pt will improve his R shoulder ROM in all directions by 20 degrees in order for him to lexis/doff clothes and reach overhead. LTG Duration 8 weeks quickdash Impairment pt scores 43 on quick dash Short Term Goal (STG) will assess next visit 08/28 pt will score 30 and less on quick dash to improve his mobility and strength STG Duration 4 weeks Women'S Activities Adviser Goal (LTG) pt will score 20 and less on quick dash to improve his mobility and strength LTG Duration 8 weeks Assessment Summary Assessment Pt has been being busy since he is moving to [place] who has not been compliant to HEP . However, based on previous notes, pt has been showing improvements with close to WNL AROM and better strength on R shoulder. He still has difficulty reaching behind his back. Pt will continuously benefit from skilled therapy to improve his postural awareness, ROM, and overall strength. Physical Therapy Plan Frequency and Duration Frequency of Treatment 1x/Week Duration of Treatment 8 weeks Plan of Care Start Date 08/28/20 Plan of Care End Date 10/27/20 Therapeutic Interventions Therapeutic Interventions Gait Training,Home Exercise Program,Joint Mobilizations, Manual Therapy,Neuromuscular Re-education,Patient/Caregiver Education,Self-Care/Home Management,Soft Tissue Mobilization,Taping, Therapeutic Activities, Therapeutic Exercises Modalities Biofeedback,Cold Pack/Ice Massage,Electric Stimulation, Hot Packs,Infrared Therapy, Iontophoresis,Ultrasound Plan of Care Dates Plan of Care Start Date 08/28/20 Plan of Care End Date 10/27/20 Electronically Signed by: Charles Yung PT 08/28/20 [id number] Please Sign and Return: I have reviewed this Plan of Care and certify that the skilled therapy services above are required to meet the patient?s needs. Physician Signature Date Printed Name and Credentials Clinical Instructor Signature Printed Name and Credentials
--- NOTE | 2020-08-29 09:30 | PT-OP ANOTE ---
Pt did not show for today's appt. TRUCK MECHANIC left message regarding and reminder of next appt with PT, only 1 of 2 left 09/06 at 1300.
--- NOTE | 2020-08-30 09:47 | PT.OTN ---
Current Diagnoses Pain in right shoulder (08/30/20) Unspecified disorder of synovium and tendon, right shoulder (08/30/20) Unspecified disorder of synovium and tendon, right upper arm (08/30/20) Impingement syndrome of right shoulder (08/30/20) Physical Therapy Treatment Note PT-OP-A Visit Information Start: 06/22/20 13:02 Freq: Status: Active Protocol: Document 08/30/20 09:04 (Rec: 08/30/20 09:47 [id number]) Out-Patient Physical Therapy Visit Information Visit Information Visit Type Treatment Note Visit Note pt is 20 mins late Visit Start Time 09:20 Visit Stop Time 09:45 Total Visit Minutes 25 Visit Number 10 Number of [employer] CIRCULAR Visits 0 PT-OP-B Current Condition Start: 06/22/20 13:02 Freq: Status: Active Protocol: Document 06/22/20 13:02 HH (Rec: 06/22/20 13:31 [email or web address]) Current Condition History of Current Condition Onset Date 4years ago Current Complaints Chronic R shoulder pain, difficulty to reach overhead History of Current Condition Pt is a 54yo male here for his chronic R shoulder pain started 4 years ago. It has been getting worse since February,. His pain is 3- 8/10 depends on the activity. Lifting his arm pass > 90 degrees, reaching behind his back aggravates his pain the most. He currently has difficulty sleeping on his R side. He only finds inactivity and taking Naproxen to relieve his pain. He did have a cortisone shot 3 weeks ago which helped his pain but not ROM. Pt had PT years ago for his L shoulder and had successful result. 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 Prior Treatments and Tests Pt stated he had X-ray a few weeks ago but he doesnt have the result. Treatment Goals Patient/Caregiver Goals 1. To be pain free with shoulder movements 2. To be able to play frisbee 3. to be able to reach overhead. Current Functional Impairments (Reported) Functional Limitations- ADL's pt has lexis/doff his shirts/ jacket with her R arm first unable to reach overhead to his shelf He uses his L arm to lift most of the time Functional Limitations- Recreation/ unable to play frisbee at this Hobbies point PT-OP-C Subjective Start: 06/22/20 13:02 Freq: Status: Active Protocol: Document 08/30/20 09:04 (Rec: 08/30/20 09:47 [id number]) OP-PT Subjective Patient Comments Patient Comments Evelyn been pretty mch the same. I havent done the exercises and i just mvoed to [place] so making the appointment is hard for me Patient Reported Progress Same PT-OP-E Functional Tests Start: 06/22/20 13:02 Freq: Status: Active Protocol: Document 06/22/20 13:02 (Rec: 06/22/20 13:31 [email or web address]) Functional Tests Apley's Scratch Test Action 2- Left T3 Action 2- Right C7 Action 3- Left T4 Action 3- Right R SIJ PT-OP-F Manual Assessment Start: 06/22/20 13:02 Freq: Status: Active Protocol: Document 06/22/20 13:02 (Rec: 06/22/20 13:31 [email or web address]) Manual Assessments Soft Tissue Assessment Soft Tissue Mobility Assessment pain and tenderness at subscapularis, teres minor and infraspinatus muscle atrophy at infraspinatus and teres minor area PT-OP-K Range of Motion Start: 06/22/20 13:02 Freq: Status: Active Protocol: Document 06/22/20 13:02 (Rec: 06/22/20 13:31 [email or web address]) Shoulder Goniometric Range of Motion Shoulder Right Passive Shoulder ROM WFL No Testing Position Supine Flexion 145 Abduction 95 External Rotation at 90 degrees 45 Abduction Internal Rotation 25 Comments pain at end range for all motions. Right Active Shoulder ROM WFL No Testing Position Standing Flexion 115 Extension 35 Abduction 75 External Rotation at 90 degrees 35 Abduction Internal Rotation 25 Comments pain at end range for all motions. Left Active Shoulder ROM WFL Yes Testing Position Standing Flexion 155 Extension 50 Abduction 145 External Rotation at 90 degrees 85 Abduction Internal Rotation 80 PT-OP-L Special Tests Start: 06/22/20 13:02 Freq: Status: Active Protocol: Document 06/22/20 13:02 (Rec: 06/22/20 13:31 [email or web address]) Special Tests Cervical Spine Special Tests Foraminal Compression Test Results -ve Spurling's Test Test Results -ve Shoulder Special Tests Apprehension Test Test Results +ve R Comments improve shoulder ER noted with posterior glide Neer Impingement Test Results +VE R Ramirez Daniel Impingement Test Results +ve R Grind Labrum Test Results -ve Empty Can Test Results +ve Comments anterior shoulder pain at R Drop Arm Rotator Cuff Test Results -ve Comments but weakness noted and pain to get to the position AC Joint Compression Test Results -ve PT-OP-M Strength Start: 06/22/20 13:02 Freq: Status: Active Protocol: Document 06/22/20 13:02 (Rec: 06/22/20 13:31 [email or web address]) Shoulder Strength Shoulder Manual Muscle Testing Right Flexion 4- Good- Extension 4- Good- Abduction (C5) 3+ Fair+ External Rotation 3+ Fair+ Internal Rotation 3+ Fair+ Comments pain noted for all resisted motions Left Flexion 5 Normal Extension 5 Normal Abduction (C5) 5 Normal Adduction 5 Normal External Rotation 5 Normal Internal Rotation 5 Normal Elbow/Forearm Strength Elbow and Forearm Manual Muscle Testing Left Flexion (C6) 5 Normal Extension (C7) 5 Normal Right Flexion (C6) 4+ Good+ Extension (C7) 4+ Good+ Comments no pain noted. PT-OP-Q Treatments Start: 06/22/20 13:02 Freq: Status: Active Protocol: Document 08/30/20 09:04 (Rec: 08/30/20 09:47 [id number]) Therapeutic Exercises Sidelying Exercises sleeper stretch Side right Comments for HEP Standing Exercises shoulder IR Side right Equipment Used level 1 band Reps/Minutes 10 x2 Comments for HEP shoulder ER Equipment Used level 1 Reps/Minutes 8x2 Comments for HEP scap pinch Side bilateral Equipment Used level 1 band Reps/Minutes 10 x 2 Comments for HEP Manual Therapy Treatment Soft Tissue Mobilization bicep tendon Mobilization Type Sustained Pressure,Trigger Point Release Intensity/Depth Deep Body Position Supine Comments with elbow flexion and extenison Joint Mobilizations GHJ Direction posterior Grade III Body Position Supine Reps/Duration 4 mins PT-OP-T Assessment and Plan Start: 06/22/20 13:02 Freq: Status: Active Protocol: Document 08/30/20 09:04 (Rec: 08/30/20 09:47 [id number]) Physical Therapy Assessment Goals HEP Impairment pt does not have HEP Short Term Goal (STG) cont in progress 08/28 pt stated he has not been compliant with HEP since he is busy moving to [place]. [employer] Goal (LTG) pt will comply to HEP safely and independently at home LTG Duration 4 weeks strength Impairment pt has limited R shoulder strength Short Term Goal (STG) pt will improve his R shoulder strength by 1/2 grade 08/28 from previous sessions, pt's R shoulder strength is grossly 4/5 with pain at 90 degrees abduction. STG Duration 4weeks [employer]at [employer] Goal (LTG) pt will improve his R shoulder stregnth by 1 full grade so he can reach overhead for objects > 5lbs without increased pain. LTG Duration 8 weeks ROM Impairment pt has very limited ROM at R shoulder Short Term Goal (STG) goal met 08/28 per EMR, pt has close to full AROM on R shoulder except reaching behind his back up to T12 region. pt will improve his R shoulder ROM in all directions by 15 degrees STG Duration 4 weeks [employer] Goal (LTG) pt will improve his R shoulder ROM in all directions by 20 degrees in order for him to lexis/doff clothes and reach overhead. LTG Duration 8 weeks quickdash Impairment pt scores 43 on quick dash Short Term Goal (STG) will assess next visit 08/28 pt will score 30 and less on quick dash to improve his mobility and strength STG Duration 4 weeks First Coat [employer] Goal (LTG) pt will score 20 and less on quick dash to improve his mobility and strength LTG Duration 8 weeks Assessment Summary Assessment Pt has not been compliant to HEP. He still has difficulty with reaching behind his back and weakness. Spent time educating pt to be compliant and provided consolidated HEP with stretching and strengthening ex. Also reminded him his next appts Physical Therapy Plan Frequency and Duration Frequency of Treatment 1x/Week Duration of Treatment 8 weeks Plan of Care Start Date 08/28/20 Plan of Care End Date 10/27/20 Therapeutic Interventions Therapeutic Interventions Gait Training,Home Exercise Program,Joint Mobilizations, Manual Therapy,Neuromuscular Re-education,Patient/Caregiver Education,Self-Care/Home Management,Soft Tissue Mobilization,Taping, Therapeutic Activities, Therapeutic Exercises Modalities Biofeedback,Cold Pack/Ice Massage,Electric Stimulation, Hot Packs,Infrared Therapy, Iontophoresis,Ultrasound Next Visit Focus/Plan Next Note Type Treatment Note Next Visit Plan check cervical ROM sTM at subscap, infra, teres minor posterior glide of GHJ mariel scap retraction AAROM withcarmitae
--- NOTE | 2020-09-06 13:47 | PT.OTN ---
Current Diagnoses Pain in right shoulder (09/06/20) Unspecified disorder of synovium and tendon, right shoulder (09/06/20) Unspecified disorder of synovium and tendon, right upper arm (09/06/20) Impingement syndrome of right shoulder (09/06/20) Physical Therapy Treatment Note PT-OP-A Visit Information Start: 06/22/20 13:02 Freq: Status: Active Protocol: Document 09/06/20 13:02 (Rec: 09/06/20 13:47 [id number]) Out-Patient Physical Therapy Visit Information Visit Information Visit Type Treatment Note Visit Start Time 13:03 Visit Stop Time 13:45 Total Visit Minutes 42 Visit Number 11 Number of PROFESSOR OF MEDICINE Visits 0 PT-OP-B Current Condition Start: 06/22/20 13:02 Freq: Status: Active Protocol: Document 06/22/20 13:02 (Rec: 06/22/20 13:31 [email or web address]) Current Condition History of Current Condition Onset Date 4years ago Current Complaints Chronic R shoulder pain, difficulty to reach overhead History of Current Condition Pt is a 54yo male here for his chronic R shoulder pain started 4 years ago. It has been getting worse since February,. His pain is 3- 8/10 depends on the activity. Lifting his arm pass > 90 degrees, reaching behind his back aggravates his pain the most. He currently has difficulty sleeping on his R side. He only finds inactivity and taking Naproxen to relieve his pain. He did have a cortisone shot 3 weeks ago which helped his pain but not ROM. Pt had PT years ago for his L shoulder and had successful result. 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 Prior Treatments and Tests Pt stated he had X-ray a few weeks ago but he doesnt have the result. Treatment Goals Patient/Caregiver Goals 1. To be pain free with shoulder movements 2. To be able to play frisbee 3. to be able to reach overhead. Current Functional Impairments (Reported) Functional Limitations- ADL's pt has lexis/doff his shirts/ jacket with her R arm first unable to reach overhead to his shelf He uses his L arm to lift most of the time Functional Limitations- Recreation/ unable to play frisbee at this Hobbies point PT-OP-C Subjective Start: 06/22/20 13:02 Freq: Status: Active Protocol: Document 09/06/20 13:02 (Rec: 09/06/20 13:47 [id number]) OP-PT Subjective Patient Comments Patient Comments Evelyn been better since i started doing my exercise. Reaching behind my back is still hard and i have not done the sleepr stretch Patient Reported Progress Improving PT-OP-E Functional Tests Start: 06/22/20 13:02 Freq: Status: Active Protocol: Document 06/22/20 13:02 (Rec: 06/22/20 13:31 [email or web address]) Functional Tests Apley's Scratch Test Action 2- Left T3 Action 2- Right C7 Action 3- Left T4 Action 3- Right R SIJ PT-OP-F Manual Assessment Start: 06/22/20 13:02 Freq: Status: Active Protocol: Document 06/22/20 13:02 (Rec: 06/22/20 13:31 [email or web address]) Manual Assessments Soft Tissue Assessment Soft Tissue Mobility Assessment pain and tenderness at subscapularis, teres minor and infraspinatus muscle atrophy at infraspinatus and teres minor area PT-OP-K Range of Motion Start: 06/22/20 13:02 Freq: Status: Active Protocol: Document 06/22/20 13:02 (Rec: 06/22/20 13:31 [email or web address]) Shoulder Goniometric Range of Motion Shoulder Right Passive Shoulder ROM WFL No Testing Position Supine Flexion 145 Abduction 95 External Rotation at 90 degrees 45 Abduction Internal Rotation 25 Comments pain at end range for all motions. Right Active Shoulder ROM WFL No Testing Position Standing Flexion 115 Extension 35 Abduction 75 External Rotation at 90 degrees 35 Abduction Internal Rotation 25 Comments pain at end range for all motions. Left Active Shoulder ROM WFL Yes Testing Position Standing Flexion 155 Extension 50 Abduction 145 External Rotation at 90 degrees 85 Abduction Internal Rotation 80 PT-OP-L Special Tests Start: 06/22/20 13:02 Freq: Status: Active Protocol: Document 06/22/20 13:02 (Rec: 06/22/20 13:31 [email or web address]) Special Tests Cervical Spine Special Tests Foraminal Compression Test Results -ve Spurling's Test Test Results -ve Shoulder Special Tests Apprehension Test Test Results +ve R Comments improve shoulder ER noted with posterior glide Neer Impingement Test Results +VE R Ramirez Daniel Impingement Test Results +ve R Grind Labrum Test Results -ve Empty Can Test Results +ve Comments anterior shoulder pain at R Drop Arm Rotator Cuff Test Results -ve Comments but weakness noted and pain to get to the position AC Joint Compression Test Results -ve PT-OP-M Strength Start: 06/22/20 13:02 Freq: Status: Active Protocol: Document 06/22/20 13:02 (Rec: 06/22/20 13:31 [email or web address]) Shoulder Strength Shoulder Manual Muscle Testing Right Flexion 4- Good- Extension 4- Good- Abduction (C5) 3+ Fair+ External Rotation 3+ Fair+ Internal Rotation 3+ Fair+ Comments pain noted for all resisted motions Left Flexion 5 Normal Extension 5 Normal Abduction (C5) 5 Normal Adduction 5 Normal External Rotation 5 Normal Internal Rotation 5 Normal Elbow/Forearm Strength Elbow and Forearm Manual Muscle Testing Left Flexion (C6) 5 Normal Extension (C7) 5 Normal Right Flexion (C6) 4+ Good+ Extension (C7) 4+ Good+ Comments no pain noted. PT-OP-Q Treatments Start: 06/22/20 13:02 Freq: Status: Active Protocol: Document 09/06/20 13:02 (Rec: 09/06/20 13:47 [id number]) Therapeutic Exercises Sidelying Exercises sleeper stretch Side right Reps/Minutes 10 sec hold x 5 Comments for HEP, cues on placing hsoulder at 90 abduction shoulder ER Sidelying Exercise Name thumb up Side right Reps/Minutes 8 x 2 Comments for HEP Sitting Exercises pulleys Sitting Exercise Name flexion and abduction Side bilateral Reps/Minutes 4 mins total Comments for HEP Standing Exercises scap pinch Side bilateral Equipment Used level 1 band Reps/Minutes 10 x 2 Comments for HEP Manual Therapy Treatment Soft Tissue Mobilization bicep tendon Mobilization Type Sustained Pressure,Trigger Point Release Intensity/Depth Deep Body Position Supine Comments with elbow flexion and extenison RTCs Body Location R shoulder Mobilization Type Sustained Pressure,Trigger Point Release Intensity/Depth Moderate Body Position Supine Comments no pain noted at infraspinatus , and pecs, Joint Mobilizations GHJ Direction posterior Grade III Body Position Supine Reps/Duration 4 mins PT-OP-T Assessment and Plan Start: 06/22/20 13:02 Freq: Status: Active Protocol: Document 09/06/20 13:02 (Rec: 09/06/20 13:47 [id number]) Physical Therapy Assessment Goals HEP Impairment pt does not have HEP Short Term Goal (STG) cont in progress 08/28 pt stated he has not been compliant with HEP since he is busy moving to [place]. [facility] Living Goal (LTG) pt will comply to HEP safely and independently at home LTG Duration 4 weeks strength Impairment pt has limited R shoulder strength Short Term Goal (STG) pt will improve his R shoulder strength by 1/2 grade 08/28 from previous sessions, pt's R shoulder strength is grossly 4/5 with pain at 90 degrees abduction. STG Duration 4weeks Profiler Operator Goal (LTG) pt will improve his R shoulder stregnth by 1 full grade so he can reach overhead for objects > 5lbs without increased pain. LTG Duration 8 weeks ROM Impairment pt has very limited ROM at R shoulder Short Term Goal (STG) goal met 08/28 per EMR, pt has close to full AROM on R shoulder except reaching behind his back up to T12 region. pt will improve his R shoulder ROM in all directions by 15 degrees STG Duration 4 weeks Profiler Operator Goal (LTG) pt will improve his R shoulder ROM in all directions by 20 degrees in order for him to lexis/doff clothes and reach overhead. LTG Duration 8 weeks quickdash Impairment pt scores 43 on quick dash Short Term Goal (STG) will assess next visit 08/28 pt will score 30 and less on quick dash to improve his mobility and strength STG Duration 4 weeks Profiler Operator Goal (LTG) pt will score 20 and less on quick dash to improve his mobility and strength LTG Duration 8 weeks Assessment Summary Assessment Pt shows improved pain since he started doing HEP with mariel only. Spent time educating him/ reviewing sleeper stretch, SL shoulder ER and scap retraction to improve his R shoulder mobility and strength. Physical Therapy Plan Frequency and Duration Frequency of Treatment 1x/Week Duration of Treatment 8 weeks Plan of Care Start Date 08/28/20 Plan of Care End Date 10/27/20 Therapeutic Interventions Therapeutic Interventions Gait Training,Home Exercise Program,Joint Mobilizations, Manual Therapy,Neuromuscular Re-education,Patient/Caregiver Education,Self-Care/Home Management,Soft Tissue Mobilization,Taping, Therapeutic Activities, Therapeutic Exercises Modalities Biofeedback,Cold Pack/Ice Massage,Electric Stimulation, Hot Packs,Infrared Therapy, Iontophoresis,Ultrasound Next Visit Focus/Plan Next Note Type Treatment Note Next Visit Plan check cervical ROM sTM at subscap, infra, teres minor posterior glide of GHJ mariel scap retraction TOÑA hdz
--- NOTE | 2020-09-13 14:31 | PT.OTN ---
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 It has been getting worse since February,. His pain is 3- 8/10 depends on the activity. Lifting his arm pass > 90 degrees, reaching behind his back aggravates his pain the most. He currently has difficulty sleeping on his R side. He only finds inactivity and taking Naproxen to relieve his pain. He did have a cortisone shot 3 weeks ago which helped his pain but not ROM. Pt had PT years ago for his L shoulder and had successful result. 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 Prior Treatments and Tests Pt stated he had X-ray a few weeks ago but he doesnt have the result. Treatment Goals Patient/Caregiver Goals 1. To be pain free with shoulder movements 2. To be able to play frisbee 3. to be able to reach overhead. Current Functional Impairments (Reported) Functional Limitations- ADL's pt has lexis/doff his shirts/ jacket with her R arm first unable to reach overhead to his shelf He uses his L arm to lift most of the time Functional Limitations- Recreation/ unable to play frisbee at this Hobbies point PT-OP-C Subjective Start: 06/22/20 13:02 Freq: Status: Active Protocol: Document 09/13/20 13:48 HH (Rec: 09/13/20 14:31 [id number]) OP-PT Subjective Patient Comments Patient Comments Im feeling a bit sore today. I havent done the sleeper stretch cause my bed is on the floor Patient Reported Progress Same PT-OP-E Functional Tests Start: 06/22/20 13:02 Freq: Status: Active Protocol: Document 06/22/20 13:02 HH (Rec: 06/22/20 13:31 [email or web address]) Functional Tests Apley's Scratch Test Action 2- Left T3 Action 2- Right C7 Action 3- Left T4 Action 3- Right R SIJ PT-OP-F Manual Assessment Start: 06/22/20 13:02 Freq: Status: Active Protocol: Document 06/22/20 13:02 HH (Rec: 06/22/20 13:31 [email or web address]) Manual Assessments Soft Tissue Assessment Soft Tissue Mobility Assessment pain and tenderness at subscapularis, teres minor and infraspinatus muscle atrophy at infraspinatus and teres minor area PT-OP-K Range of Motion Start: 06/22/20 13:02 Freq: Status: Active Protocol: Document 06/22/20 13:02 HH (Rec: 06/22/20 13:31 [email or web address]) Shoulder Goniometric Range of Motion Shoulder Right Passive Shoulder ROM WFL No Testing Position Supine Flexion 145 Abduction 95 External Rotation at 90 degrees 45 Abduction Internal Rotation 25 Comments pain at end range for all motions. Right Active Shoulder ROM WFL No Testing Position Standing Flexion 115 Extension 35 Abduction 75 External Rotation at 90 degrees 35 Abduction Internal Rotation 25 Comments pain at end range for all motions. Left Active Shoulder ROM WFL Yes Testing Position Standing Flexion 155 Extension 50 Abduction 145 External Rotation at 90 degrees 85 Abduction Internal Rotation 80 PT-OP-L Special Tests Start: 06/22/20 13:02 Freq: Status: Active Protocol: Document 06/22/20 13:02 HH (Rec: 06/22/20 13:31 [email or web address]) Special Tests Cervical Spine Special Tests Foraminal Compression Test Results -ve Spurling's Test Test Results -ve Shoulder Special Tests Apprehension Test Test Results +ve R Comments improve shoulder ER noted with posterior glide Neer Impingement Test Results +VE R Ramirez Daniel Impingement Test Results +ve R Grind Labrum Test Results -ve Empty Can Test Results +ve Comments anterior shoulder pain at R Drop Arm Rotator Cuff Test Results -ve Comments but weakness noted and pain to get to the position AC Joint Compression Test Results -ve PT-OP-M Strength Start: 06/22/20 13:02 Freq: Status: Active Protocol: Document 06/22/20 13:02 (Rec: 06/22/20 13:31 [email or web address]) Shoulder Strength Shoulder Manual Muscle Testing Right Flexion 4- Good- Extension 4- Good- Abduction (C5) 3+ Fair+ External Rotation 3+ Fair+ Internal Rotation 3+ Fair+ Comments pain noted for all resisted motions Left Flexion 5 Normal Extension 5 Normal Abduction (C5) 5 Normal Adduction 5 Normal External Rotation 5 Normal Internal Rotation 5 Normal Elbow/Forearm Strength Elbow and Forearm Manual Muscle Testing Left Flexion (C6) 5 Normal Extension (C7) 5 Normal Right Flexion (C6) 4+ Good+ Extension (C7) 4+ Good+ Comments no pain noted. PT-OP-Q Treatments Start: 06/22/20 13:02 Freq: Status: Active Protocol: Document 09/13/20 13:48 HH (Rec: 09/13/20 14:31 [id number]) Therapeutic Exercises Supine Exercises supine ER/IR Side bilateral Equipment Used PVC Reps/Minutes 10 x2 Comments for HEP Sitting Exercises pulleys Sitting Exercise Name flexion and abduction Side bilateral Reps/Minutes 4 mins total Comments for HEP Standing Exercises towel stretch Standing Exercise Name for IR Side bilateral Comments significant pain noted. on hold first shoulder shrug Standing Exercise Name shoulder circles Side bilateral Reps/Minutes 10 x2 Comments fwd and bwd scap pinch Side bilateral Reps/Minutes 10 x 2 Comments against wall Manual Therapy Treatment Soft Tissue Mobilization bicep tendon Mobilization Type Sustained Pressure,Trigger Point Release Intensity/Depth Deep Body Position Supine Comments with elbow flexion and extenison RTCs Body Location R shoulder Mobilization Type Sustained Pressure,Trigger Point Release Intensity/Depth Moderate Body Position Supine Comments no pain noted at infraspinatus , and pecs, Joint Mobilizations GHJ Direction posterior Grade III Body Position Supine Reps/Duration 4 mins PT-OP-T Assessment and Plan Start: 06/22/20 13:02 Freq: Status: Active Protocol: Document 06/02/21 13:48 (Rec: 09/13/20 14:31 HH [id number]) Physical Therapy Assessment Goals HEP Impairment pt does not have HEP Short Term Goal (STG) cont in progress 08/28 pt stated he has not been compliant with HEP since he is busy moving to [place]. Drawer In Dobby Loom Goal (LTG) pt will comply to HEP safely and independently at home LTG Duration 4 weeks strength Impairment pt has limited R shoulder strength Short Term Goal (STG) pt will improve his R shoulder strength by 1/2 grade 08/28 from previous sessions, pt's R shoulder strength is grossly 4/5 with pain at 90 degrees abduction. STG Duration 4weeks Correction Goal (LTG) pt will improve his R shoulder stregnth by 1 full grade so he can reach overhead for objects > 5lbs without increased pain. LTG Duration 8 weeks ROM Impairment pt has very limited ROM at R shoulder Short Term Goal (STG) goal met 08/28 per EMR, pt has close to full AROM on R shoulder except reaching behind his back up to T12 region. pt will improve his R shoulder ROM in all directions by 15 degrees STG Duration 4 weeks Drawer In Dobby Loom Goal (LTG) pt will improve his R shoulder ROM in all directions by 20 degrees in order for him to lexis/doff clothes and reach overhead. LTG Duration 8 weeks quickdash Impairment pt scores 43 on quick dash Short Term Goal (STG) will assess next visit 08/28 pt will score 30 and less on quick dash to improve his mobility and strength STG Duration 4 weeks Correction Goal (LTG) pt will score 20 and less on quick dash to improve his mobility and strength LTG Duration 8 weeks Assessment Summary Assessment Pt continues to have significant difficulty reaching behind his back since pt hasnt been able to do sleeper stretch d/t bed position. Spent time educating pt to use PVC to do it in supiner since significant pain with towel stretch. Physical Therapy Plan Frequency and Duration Frequency of Treatment 1x/Week Duration of Treatment 8 weeks Plan of Care Start Date 08/28/20 Plan of Care End Date 10/27/20 Therapeutic Interventions Therapeutic Interventions Gait Training,Home Exercise Program,Joint Mobilizations, Manual Therapy,Neuromuscular Re-education,Patient/Caregiver Education,Self-Care/Home Management,Soft Tissue Mobilization,Taping, Therapeutic Activities, Therapeutic Exercises Modalities Biofeedback,Cold Pack/Ice Massage,Electric Stimulation, Hot Packs,Infrared Therapy, Iontophoresis,Ultrasound Next Visit Focus/Plan Next Note Type Treatment Note Next Visit Plan check cervical ROM sTM at subscap, infra, teres minor posterior glide of GHJ mariel scap retraction TOÑA hdz
--- NOTE | 2020-09-19 15:18 | PT.OTN ---
Current Diagnoses Pain in right shoulder (09/19/20) Unspecified disorder of synovium and tendon, right shoulder (09/19/20) Unspecified disorder of synovium and tendon, right upper arm (09/19/20) Impingement syndrome of right shoulder (09/19/20) Physical Therapy Treatment Note PT-OP-A Visit Information Start: 06/22/20 13:02 Freq: Status: Active Protocol: Document 09/19/20 14:35 SP (Rec: 09/19/20 15:40 SP [id number]) Out-Patient Physical Therapy Visit Information Visit Information Visit Type Treatment Note Visit Start Time 14:35 Visit Stop Time 15:18 Total Visit Minutes 43 Visit Number 13 Number of CORE STRIPPER Visits 1 Evaluation Information Evaluation Date 06/22/20 PT-OP-B Current Condition Start: 06/22/20 13:02 Freq: Status: Active Protocol: Document 06/22/20 13:02 HH (Rec: 06/22/20 13:31 HH [email or web address]) Current Condition History of Current Condition Onset Date 4years ago Current Complaints Chronic R shoulder pain, difficulty to reach overhead History of Current Condition Pt is a 54yo male here for his chronic R shoulder pain started 4 years ago. It has been getting worse since February,. His pain is 3- 8/10 depends on the activity. Lifting his arm pass > 90 degrees, reaching behind his back aggravates his pain the most. He currently has difficulty sleeping on his R side. He only finds inactivity and taking Naproxen to relieve his pain. He did have a cortisone shot 3 weeks ago which helped his pain but not ROM. Pt had PT years ago for his L shoulder and had successful result. 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 Prior Treatments and Tests Pt stated he had X-ray a few weeks ago but he doesnt have the result. Treatment Goals Patient/Caregiver Goals 1. To be pain free with shoulder movements 2. To be able to play frisbee 3. to be able to reach overhead. Current Functional Impairments (Reported) Functional Limitations- ADL's pt has lexis/doff his shirts/ jacket with her R arm first unable to reach overhead to his shelf He uses his L arm to lift most of the time Functional Limitations- Recreation/ unable to play frisbee at this Hobbies point PT-OP-C Subjective Start: 06/22/20 13:02 Freq: Status: Active Protocol: Document 09/19/20 14:35 SP (Rec: 09/19/20 15:40 SP [id number]) OP-PT Subjective Patient Comments Patient Comments Pt stated sore over anterior R shld, haven't done the whole group of exercises since last here. Patient Reported Progress Same PT-OP-E Functional Tests Start: 06/22/20 13:02 Freq: Status: Active Protocol: Document 06/22/20 13:02 HH (Rec: 06/22/20 13:31 HH [email or web address]) Functional Tests Apley's Scratch Test Action 2- Left T3 Action 2- Right C7 Action 3- Left T4 Action 3- Right R SIJ PT-OP-F Manual Assessment Start: 06/22/20 13:02 Freq: Status: Active Protocol: Document 06/22/20 13:02 HH (Rec: 06/22/20 13:31 HH [email or web address]) Manual Assessments Soft Tissue Assessment Soft Tissue Mobility Assessment pain and tenderness at subscapularis, teres minor and infraspinatus muscle atrophy at infraspinatus and teres minor area PT-OP-K Range of Motion Start: 06/22/20 13:02 Freq: Status: Active Protocol: Document 06/22/20 13:02 HH (Rec: 06/22/20 13:31 HH [email or web address]) Shoulder Goniometric Range of Motion Shoulder Right Passive Shoulder ROM WFL No Testing Position Supine Flexion 145 Abduction 95 External Rotation at 90 degrees 45 Abduction Internal Rotation 25 Comments pain at end range for all motions. Right Active Shoulder ROM WFL No Testing Position Standing Flexion 115 Extension 35 Abduction 75 External Rotation at 90 degrees 35 Abduction Internal Rotation 25 Comments pain at end range for all motions. Left Active Shoulder ROM WFL Yes Testing Position Standing Flexion 155 Extension 50 Abduction 145 External Rotation at 90 degrees 85 Abduction Internal Rotation 80 PT-OP-L Special Tests Start: 06/22/20 13:02 Freq: Status: Active Protocol: Document 06/22/20 13:02 HH (Rec: 06/22/20 13:31 HH [email or web address]) Special Tests Cervical Spine Special Tests Foraminal Compression Test Results -ve Spurling's Test Test Results -ve Shoulder Special Tests Apprehension Test Test Results +ve R Comments improve shoulder ER noted with posterior glide Neer Impingement Test Results +VE R Ramirez Daniel Impingement Test Results +ve R Grind Labrum Test Results -ve Empty Can Test Results +ve Comments anterior shoulder pain at R Drop Arm Rotator Cuff Test Results -ve Comments but weakness noted and pain to get to the position AC Joint Compression Test Results -ve PT-OP-M Strength Start: 06/22/20 13:02 Freq: Status: Active Protocol: Document 06/22/20 13:02 HH (Rec: 06/22/20 13:31 HH [email or web address]) Shoulder Strength Shoulder Manual Muscle Testing Right Flexion 4- Good- Extension 4- Good- Abduction (C5) 3+ Fair+ External Rotation 3+ Fair+ Internal Rotation 3+ Fair+ Comments pain noted for all resisted motions Left Flexion 5 Normal Extension 5 Normal Abduction (C5) 5 Normal Adduction 5 Normal External Rotation 5 Normal Internal Rotation 5 Normal Elbow/Forearm Strength Elbow and Forearm Manual Muscle Testing Left Flexion (C6) 5 Normal Extension (C7) 5 Normal Right Flexion (C6) 4+ Good+ Extension (C7) 4+ Good+ Comments no pain noted. PT-OP-Q Treatments Start: 06/22/20 13:02 Freq: Status: Active Protocol: Document 09/19/20 14:35 SP (Rec: 09/19/20 15:40 SP [id number]) Therapeutic Exercises Supine Exercises supine ER/IR Side bilateral Equipment Used AROM Reps/Minutes 10 x2 Comments for HEP Sitting Exercises pulleys Sitting Exercise Name flexion and abduction Side bilateral Reps/Minutes 4 mins total Comments did not perform this tx but discussed and perform at home Standing Exercises Finger wall walking Standing Exercise Name FF, ABD Side right Comments cued scap depression awareness racquetballroll post scap, theracane neck/ post scap Standing Exercise Name UT, infraspinatus, inter scap, pec, deltoid, suboccipitals Side right Comments sustained pressure MWM head turn/ nod or scap mob towel stretch Standing Exercise Name shld IR- focused hand across pelvis 1st before superior ROM Side right Equipment Used towel, mirror for self feedback posture Reps/Minutes 20 x3 Comments cued level shld and scap stab- little sore ant shld good feedback bicep tendon stretch Side right Resistance AROM elbow extension then wrist ext to margy range Reps/Minutes 10s stretch Comments cued scap stab shoulder ER Side right Equipment Used dowel, front mirror Reps/Minutes 8x2 Comments cued for posture scap pinch Side bilateral Equipment Used front mirror self feedback Reps/Minutes 10 x 2 Comments free standing Manual Therapy Treatment Soft Tissue Mobilization bicep tendon Mobilization Type Sustained Pressure,Trigger Point Release,Other Intensity/Depth Moderate Body Position Supine Comments MWM with elbow flexion/ extenison/ pron/ sup, instruction on self RTCs Body Location R shoulder Mobilization Type Sustained Pressure,Trigger Point Release Intensity/Depth Moderate Body Position Supine Comments no pain noted at supraspinatus , infraspinatus, and pecs, tender over bicep tendon/teres , rhomboids, UT, serratus ant. Joint Mobilizations GHJ Direction posterior Grade II Body Position Supine Reps/Duration 2 Manual Techniques PNF Type R scap retract/depress> humeral inf glide during ABD, FF Body Position Sidelying Reps/Duration 4 min Comments PNF> AAROM w/ contact cues for scap and humeral inf glide with little improvement in FF and ABD guided AAROM PT-OP-T Assessment and Plan Start: 06/22/20 13:02 Freq: Status: Active Protocol: Document 09/19/20 14:35 SP (Rec: 09/19/20 15:40 SP [id number]) Physical Therapy Assessment Goals HEP Impairment pt does not have HEP Short Term Goal (STG) cont in progress 08/28 pt stated he has not been compliant with HEP since he is busy moving to [place]. Senior Care Goal (LTG) pt will comply to HEP safely and independently at home LTG Duration 4 weeks strength Impairment pt has limited R shoulder strength Short Term Goal (STG) pt will improve his R shoulder strength by 1/2 grade 08/28 from previous sessions, pt's R shoulder strength is grossly 4/5 with pain at 90 degrees abduction. STG Duration 4weeks Senior Care Goal (LTG) pt will improve his R shoulder stregnth by 1 full grade so he can reach overhead for objects > 5lbs without increased pain. LTG Duration 8 weeks ROM Impairment pt has very limited ROM at R shoulder Short Term Goal (STG) goal met 08/28 per EMR, pt has close to full AROM on R shoulder except reaching behind his back up to T12 region. pt will improve his R shoulder ROM in all directions by 15 degrees STG Duration 4 weeks Senior Care Goal (LTG) pt will improve his R shoulder ROM in all directions by 20 degrees in order for him to lexis/doff clothes and reach overhead. LTG Duration 8 weeks quickdash Impairment pt scores 43 on quick dash Short Term Goal (STG) will assess next visit 08/28 pt will score 30 and less on quick dash to improve his mobility and strength STG Duration 4 weeks Senior Care Goal (LTG) pt will score 20 and less on quick dash to improve his mobility and strength LTG Duration 8 weeks Assessment Summary Assessment Tx focused on R shld ROM, self manual to tight muscles for home application with good feedback using racquetball at wall and theracane for post scap and neck. Pt responded well to HEP review, required cuing for scap retract/ depress stabilization awareness, used mirror for self feedback. Pt reported improvement in R shld IR with recommendations adduction before hand elevate up back with good posture decrease UT recruitment throughout tx. Discussed self MWM R bicep then stretching to allow arm to relax side and better position OH ROM. Physical Therapy Plan Frequency and Duration Frequency of Treatment 1x/Week Duration of Treatment 8 weeks Plan of Care Start Date 08/28/20 Plan of Care End Date 10/27/20 Therapeutic Interventions Therapeutic Interventions Gait Training,Home Exercise Program,Joint Mobilizations, Manual Therapy,Neuromuscular Re-education,Patient/Caregiver Education,Self-Care/Home Management,Soft Tissue Mobilization,Taping, Therapeutic Activities, Therapeutic Exercises Modalities Biofeedback,Cold Pack/Ice Massage,Electric Stimulation, Hot Packs,Infrared Therapy, Iontophoresis,Ultrasound Next Visit Focus/Plan Next Note Type Treatment Note Next Visit Plan Next tx check cervical ROM STM at subscap, infra, teres minor posterior glide of GHJ mariel scap retraction AAROM with cane
--- NOTE | 2020-09-25 15:20 | PT.OTN ---
Current Diagnoses Pain in right shoulder (09/25/20) Unspecified disorder of synovium and tendon, right shoulder (09/25/20) Unspecified disorder of synovium and tendon, right upper arm (09/25/20) Impingement syndrome of right shoulder (09/25/20) Physical Therapy Treatment Note PT-OP-A Visit Information Start: 06/22/20 13:02 Freq: Status: Active Protocol: Document 09/25/20 14:35 SP (Rec: 09/25/20 15:56 SP [id number]) Out-Patient Physical Therapy Visit Information Visit Information Visit Type Treatment Note Visit Start Time 14:35 Visit Stop Time 15:20 Total Visit Minutes 45 Visit Number 14 Number of ONCOLOGY RADIATION PHYSICIAN Visits 2 Evaluation Information Evaluation Date 06/22/20 PT-OP-B Current Condition Start: 06/22/20 13:02 Freq: Status: Active Protocol: Document 06/22/20 13:02 HH (Rec: 06/22/20 13:31 HH [email or web address]) Current Condition History of Current Condition Onset Date 4years ago Current Complaints Chronic R shoulder pain, difficulty to reach overhead History of Current Condition Pt is a 54yo male here for his chronic R shoulder pain started 4 years ago. It has been getting worse since February,. His pain is 3- 8/10 depends on the activity. Lifting his arm pass > 90 degrees, reaching behind his back aggravates his pain the most. He currently has difficulty sleeping on his R side. He only finds inactivity and taking Naproxen to relieve his pain. He did have a cortisone shot 3 weeks ago which helped his pain but not ROM. Pt had PT years ago for his L shoulder and had successful result. 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 Prior Treatments and Tests Pt stated he had X-ray a few weeks ago but he doesnt have the result. Treatment Goals Patient/Caregiver Goals 1. To be pain free with shoulder movements 2. To be able to play frisbee 3. to be able to reach overhead. Current Functional Impairments (Reported) Functional Limitations- ADL's pt has lexis/doff his shirts/ jacket with her R arm first unable to reach overhead to his shelf He uses his L arm to lift most of the time Functional Limitations- Recreation/ unable to play frisbee at this Hobbies point PT-OP-C Subjective Start: 06/22/20 13:02 Freq: Status: Active Protocol: Document 09/25/20 14:35 SP (Rec: 09/25/20 15:56 SP [id number]) OP-PT Subjective Patient Comments Patient Comments Pt stated I am gaining range, would probably be much better if did his exercises 2x/day daily, has been focusing more on pulleys and cane AROM activity IR behind back, ER. Pt commented thinks he will finish the next 2 appts and ready to DC to his HEP to progress on own what instructed. Pt demonstrates improved R elbow extension arm hanging at side compared to previous tx. PT-OP-E Functional Tests Start: 06/22/20 13:02 Freq: Status: Active Protocol: Document 06/22/20 13:02 HH (Rec: 06/22/20 13:31 HH [email or web address]) Functional Tests Apley's Scratch Test Action 2- Left T3 Action 2- Right C7 Action 3- Left T4 Action 3- Right R SIJ PT-OP-F Manual Assessment Start: 06/22/20 13:02 Freq: Status: Active Protocol: Document 06/22/20 13:02 HH (Rec: 06/22/20 13:31 HH [email or web address]) Manual Assessments Soft Tissue Assessment Soft Tissue Mobility Assessment pain and tenderness at subscapularis, teres minor and infraspinatus muscle atrophy at infraspinatus and teres minor area PT-OP-K Range of Motion Start: 06/22/20 13:02 Freq: Status: Active Protocol: Document 06/22/20 13:02 HH (Rec: 06/22/20 13:31 HH [email or web address]) Shoulder Goniometric Range of Motion Shoulder Right Passive Shoulder ROM WFL No Testing Position Supine Flexion 145 Abduction 95 External Rotation at 90 degrees 45 Abduction Internal Rotation 25 Comments pain at end range for all motions. Right Active Shoulder ROM WFL No Testing Position Standing Flexion 115 Extension 35 Abduction 75 External Rotation at 90 degrees 35 Abduction Internal Rotation 25 Comments pain at end range for all motions. Left Active Shoulder ROM WFL Yes Testing Position Standing Flexion 155 Extension 50 Abduction 145 External Rotation at 90 degrees 85 Abduction Internal Rotation 80 PT-OP-L Special Tests Start: 06/22/20 13:02 Freq: Status: Active Protocol: Document 06/22/20 13:02 (Rec: 06/22/20 13:31 HH [email or web address]) Special Tests Cervical Spine Special Tests Foraminal Compression Test Results -ve Spurling's Test Test Results -ve Shoulder Special Tests Apprehension Test Test Results +ve R Comments improve shoulder ER noted with posterior glide Neer Impingement Test Results +VE R Ramirez Daniel Impingement Test Results +ve R Grind Labrum Test Results -ve Empty Can Test Results +ve Comments anterior shoulder pain at R Drop Arm Rotator Cuff Test Results -ve Comments but weakness noted and pain to get to the position AC Joint Compression Test Results -ve PT-OP-M Strength Start: 06/22/20 13:02 Freq: Status: Active Protocol: Document 06/22/20 13:02 (Rec: 06/22/20 13:31 [email or web address]) Shoulder Strength Shoulder Manual Muscle Testing Right Flexion 4- Good- Extension 4- Good- Abduction (C5) 3+ Fair+ External Rotation 3+ Fair+ Internal Rotation 3+ Fair+ Comments pain noted for all resisted motions Left Flexion 5 Normal Extension 5 Normal Abduction (C5) 5 Normal Adduction 5 Normal External Rotation 5 Normal Internal Rotation 5 Normal Elbow/Forearm Strength Elbow and Forearm Manual Muscle Testing Left Flexion (C6) 5 Normal Extension (C7) 5 Normal Right Flexion (C6) 4+ Good+ Extension (C7) 4+ Good+ Comments no pain noted. PT-OP-Q Treatments Start: 06/22/20 13:02 Freq: Status: Active Protocol: Document 09/25/20 14:35 SP (Rec: 09/25/20 15:56 SP [id number]) Cardio Equipment Upper Body Ergometer (UBE) Duration (Minutes) 6 Seat Position 12 Height 3.5 Other 60 sec each directoin, 55 RPM Therapeutic Exercises Supine Exercises PVC flexion Side bilateral Equipment Used 2- 3# DB Reps/Minutes 8 Comments cues with SA punch, knees bent w/ TA awareness- little shaky Sidelying Exercises sleeper stretch Sidelying Exercise Name standing at wall- review HEP Side right Equipment Used AAROM Reps/Minutes 10 sec hold x 3 Comments cues on placing shoulder at FF 90* and elbow 90 *, cued level shld shoulder abduction Side right Equipment Used AROM>1 lb DB Reps/Minutes 5 reps, 5 reps Comments 117 deg Sitting Exercises pulleys Sitting Exercise Name R shld flexion 145* and abduction 163* Side right Reps/Minutes bilateral performed Comments cued awareness of scap and humeral depression dec UT recruitment Standing Exercises incline plank vs shld tap Standing Exercise Name in PT only Side bilateral Reps/Minutes x3 Comments pt challenged scap stab and serratus press form, winging during shld tap resisted row, ext Standing Exercise Name HEP review Side bilateral Resistance TB #1 Reps/Minutes x10 each Comments cued scap stabilization eccentric return Finger wall walking Standing Exercise Name FF Side right Reps/Minutes 15 sec hold x3 Comments cued scap depression awareness towel stretch Standing Exercise Name shld IR- focused hand across pelvis 1st before superior ROM Side right Equipment Used dowel, mirror for self feedback posture Reps/Minutes 20 x4 Comments cued level shld and scap stab- little sore ant shld good feedback shoulder IR Side right Equipment Used level 1 band Reps/Minutes 10 x2 Comments cued scap stabilization eccentric return bicep tendon stretch Side right Resistance AROM elbow extension then wrist ext to margy range Reps/Minutes 10s stretch Comments good form shoulder ER Side right Equipment Used dowel, front mirror Reps/Minutes 10x2 Comments cued for posture, cued scap stabilization eccentric return PT-OP-T Assessment and Plan Start: 06/22/20 13:02 Freq: Status: Active Protocol: Document 09/25/20 14:35 SP (Rec: 09/25/20 15:56 SP [id number]) Physical Therapy Assessment Goals HEP Impairment pt does not have HEP Short Term Goal (STG) cont in progress 08/28 pt stated he has not been compliant with HEP since he is busy moving to [place]. Calender Feeder Goal (LTG) pt will comply to HEP safely and independently at home 09/25/20: supine FF dowel, ABD AROM, pulleys FF/ ABD, IR/ ER/ rows/ ext TB, IR w/ dowel behind back, LTG Duration 4 weeks strength Impairment pt has limited R shoulder strength Short Term Goal (STG) pt will improve his R shoulder strength by 1/2 grade 08/28 from previous sessions, pt's R shoulder strength is grossly 4/5 with pain at 90 degrees abduction. STG Duration 4weeks Calender Feeder Goal (LTG) pt will improve his R shoulder stregnth by 1 full grade so he can reach overhead for objects > 5lbs without increased pain. LTG Duration 8 weeks ROM Impairment pt has very limited ROM at R shoulder Short Term Goal (STG) goal met 08/28 per EMR, pt has close to full AROM on R shoulder except reaching behind his back up to T12 region. pt will improve his R shoulder ROM in all directions by 15 degrees STG Duration 4 weeks Calender Feeder Goal (LTG) pt will improve his R shoulder ROM in all directions by 20 degrees in order for him to lexis/doff clothes and reach overhead. 09/25/20: progressing standing R shld AROM: FF 132* ABD 138* w/ forward comp. ER 88* IR L3 LTG Duration 8 weeks quickdash Impairment pt scores 43 on quick dash Short Term Goal (STG) will assess next visit 08/28 pt will score 30 and less on quick dash to improve his mobility and strength STG Duration 4 weeks Half-Way Goal (LTG) pt will score 20 and less on quick dash to improve his mobility and strength LTG Duration 8 weeks Assessment Summary Assessment Pt tolerated tx well, making gains in AROM. Reviewed HEP, cues for scap stab into depression during OH AAROM- AROM, noted forward positioning compenstations during FF and ABD during standing AROM measurements. Pt decreased scap stability in WB. Will progress end range ROM and HEP strengthening progression program next 2 txs due to pt wanting to continue on own. Physical Therapy Plan Frequency and Duration Frequency of Treatment 1x/Week Duration of Treatment 8 weeks Plan of Care Start Date 08/28/20 Plan of Care End Date 10/27/20 Therapeutic Interventions Therapeutic Interventions Gait Training,Home Exercise Program,Joint Mobilizations, Manual Therapy,Neuromuscular Re-education,Patient/Caregiver Education,Self-Care/Home Management,Soft Tissue Mobilization,Taping, Therapeutic Activities, Therapeutic Exercises Modalities Biofeedback,Cold Pack/Ice Massage,Electric Stimulation, Hot Packs,Infrared Therapy, Iontophoresis,Ultrasound Next Visit Focus/Plan Next Note Type Treatment Note Next Visit Plan Next tx check cervical ROM, progressive HEP. See Assessment suggestions/ comments. POC: STM at subscap, infra, teres minor posterior glide of GHJ mariel scap retraction AAROM with cane
--- NOTE | 2020-10-13 12:12 | PT.OTN ---
Current Diagnoses Pain in right shoulder (10/13/20) Unspecified disorder of synovium and tendon, right shoulder (10/13/20) Unspecified disorder of synovium and tendon, right upper arm (10/13/20) Impingement syndrome of right shoulder (10/13/20) Physical Therapy Treatment Note PT-OP-A Visit Information Start: 06/22/20 13:02 Freq: Status: Active Protocol: Document 10/13/20 09:51 HH (Rec: 10/13/20 12:11 [id number]) Out-Patient Physical Therapy Visit Information Visit Information Visit Type Treatment Note Visit Start Time 09:48 Visit Stop Time 10:30 Total Visit Minutes 42 Visit Number 15 Number of ENVIRONMENTAL SOLUTIONS ENGINEER Visits 0 PT-OP-B Current Condition Start: 06/22/20 13:02 Freq: Status: Active Protocol: Document 06/22/20 13:02 HH (Rec: 06/22/20 13:31 [email or web address]) Current Condition History of Current Condition Onset Date 4years ago Current Complaints Chronic R shoulder pain, difficulty to reach overhead History of Current Condition Pt is a 54yo male here for his chronic R shoulder pain started 4 years ago. It has been getting worse since February,. His pain is 3- 8/10 depends on the activity. Lifting his arm pass > 90 degrees, reaching behind his back aggravates his pain the most. He currently has difficulty sleeping on his R side. He only finds inactivity and taking Naproxen to relieve his pain. He did have a cortisone shot 3 weeks ago which helped his pain but not ROM. Pt had PT years ago for his L shoulder and had successful result. 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 Prior Treatments and Tests Pt stated he had X-ray a few weeks ago but he doesnt have the result. Treatment Goals Patient/Caregiver Goals 1. To be pain free with shoulder movements 2. To be able to play frisbee 3. to be able to reach overhead. Current Functional Impairments (Reported) Functional Limitations- ADL's pt has lexis/doff his shirts/ jacket with her R arm first unable to reach overhead to his shelf He uses his L arm to lift most of the time Functional Limitations- Recreation/ unable to play frisbee at this Hobbies point PT-OP-C Subjective Start: 06/22/20 13:02 Freq: Status: Active Protocol: Document 10/13/20 09:51 HH (Rec: 10/13/20 12:11 [id number]) OP-PT Subjective Patient Comments Patient Comments Its getting better. Its the matter of me doing my exercises or what not PT-OP-E Functional Tests Start: 06/22/20 13:02 Freq: Status: Active Protocol: Document 06/22/20 13:02 HH (Rec: 06/22/20 13:31 [email or web address]) Functional Tests Apley's Scratch Test Action 2- Left T3 Action 2- Right C7 Action 3- Left T4 Action 3- Right R SIJ PT-OP-F Manual Assessment Start: 06/22/20 13:02 Freq: Status: Active Protocol: Document 06/22/20 13:02 HH (Rec: 06/22/20 13:31 [email or web address]) Manual Assessments Soft Tissue Assessment Soft Tissue Mobility Assessment pain and tenderness at subscapularis, teres minor and infraspinatus muscle atrophy at infraspinatus and teres minor area PT-OP-K Range of Motion Start: 06/22/20 13:02 Freq: Status: Active Protocol: Document 06/22/20 13:02 (Rec: 06/22/20 13:31 [email or web address]) Shoulder Goniometric Range of Motion Shoulder Right Passive Shoulder ROM WFL No Testing Position Supine Flexion 145 Abduction 95 External Rotation at 90 degrees 45 Abduction Internal Rotation 25 Comments pain at end range for all motions. Right Active Shoulder ROM WFL No Testing Position Standing Flexion 115 Extension 35 Abduction 75 External Rotation at 90 degrees 35 Abduction Internal Rotation 25 Comments pain at end range for all motions. Left Active Shoulder ROM WFL Yes Testing Position Standing Flexion 155 Extension 50 Abduction 145 External Rotation at 90 degrees 85 Abduction Internal Rotation 80 PT-OP-L Special Tests Start: 06/22/20 13:02 Freq: Status: Active Protocol: Document 06/22/20 13:02 (Rec: 06/22/20 13:31 [email or web address]) Special Tests Cervical Spine Special Tests Foraminal Compression Test Results -ve Spurling's Test Test Results -ve Shoulder Special Tests Apprehension Test Test Results +ve R Comments improve shoulder ER noted with posterior glide Neer Impingement Test Results +VE R Ramirez Daniel Impingement Test Results +ve R Grind Labrum Test Results -ve Empty Can Test Results +ve Comments anterior shoulder pain at R Drop Arm Rotator Cuff Test Results -ve Comments but weakness noted and pain to get to the position AC Joint Compression Test Results -ve PT-OP-M Strength Start: 06/22/20 13:02 Freq: Status: Active Protocol: Document 06/22/20 13:02 (Rec: 06/22/20 13:31 [email or web address]) Shoulder Strength Shoulder Manual Muscle Testing Right Flexion 4- Good- Extension 4- Good- Abduction (C5) 3+ Fair+ External Rotation 3+ Fair+ Internal Rotation 3+ Fair+ Comments pain noted for all resisted motions Left Flexion 5 Normal Extension 5 Normal Abduction (C5) 5 Normal Adduction 5 Normal External Rotation 5 Normal Internal Rotation 5 Normal Elbow/Forearm Strength Elbow and Forearm Manual Muscle Testing Left Flexion (C6) 5 Normal Extension (C7) 5 Normal Right Flexion (C6) 4+ Good+ Extension (C7) 4+ Good+ Comments no pain noted. PT-OP-Q Treatments Start: 06/22/20 13:02 Freq: Status: Active Protocol: Document 10/13/20 09:51 (Rec: 10/13/20 12:11 [id number]) Therapeutic Exercises Supine Exercises pec stretch Supine Exercise Name on foam roller Side bilateral Sidelying Exercises levator scap stretch Comments for HEP Standing Exercises scap pinch Side bilateral Equipment Used front mirror self feedback Reps/Minutes 10 x 2 Comments free standing Manual Therapy Treatment Soft Tissue Mobilization UT and lats Mobilization Type Sustained Pressure,Trigger Point Release Intensity/Depth Moderate Body Position Sitting bicep tendon Mobilization Type Sustained Pressure,Trigger Point Release,Other Intensity/Depth Moderate Body Position Supine Comments MWM with elbow flexion/ extenison/ pron/ sup, instruction on self followed by distal bicep and wrist extensors. RTCs Body Location R shoulder Mobilization Type Sustained Pressure,Trigger Point Release Intensity/Depth Moderate Body Position Supine Comments no pain noted at supraspinatus , infraspinatus, and pecs, tender over bicep tendon/teres , rhomboids, UT, serratus ant. Joint Mobilizations GHJ Direction posterior Grade II Body Position Supine Reps/Duration 2 Manual Techniques rhythmic initiation Type passive mobilization Body Position Supine Comments less muscle guarding noted. upward rotation, elevation PT-OP-T Assessment and Plan Start: 06/22/20 13:02 Freq: Status: Active Protocol: Document 10/13/20 09:51 HH (Rec: 10/13/20 12:11 HH [id number]) Physical Therapy Assessment Goals HEP Impairment pt does not have HEP Short Term Goal (STG) cont in progress 08/28 pt stated he has not been compliant with HEP since he is busy moving to [place]. [facility] Goal (LTG) pt will comply to HEP safely and independently at home 09/25/20: supine FF dowel, ABD AROM, pulleys FF/ ABD, IR/ ER/ rows/ ext TB, IR w/ dowel behind back, LTG Duration 4 weeks strength Impairment pt has limited R shoulder strength Short Term Goal (STG) pt will improve his R shoulder strength by 1/2 grade 08/28 from previous sessions, pt's R shoulder strength is grossly 4/5 with pain at 90 degrees abduction. STG Duration 4weeks Comber Operator Goal (LTG) pt will improve his R shoulder stregnth by 1 full grade so he can reach overhead for objects > 5lbs without increased pain. LTG Duration 8 weeks ROM Impairment pt has very limited ROM at R shoulder Short Term Goal (STG) goal met 08/28 per EMR, pt has close to full AROM on R shoulder except reaching behind his back up to T12 region. pt will improve his R shoulder ROM in all directions by 15 degrees STG Duration 4 weeks Comber Operator Goal (LTG) pt will improve his R shoulder ROM in all directions by 20 degrees in order for him to lexis/doff clothes and reach overhead. 09/25/20: progressing standing R shld AROM: FF 132* ABD 138* w/ forward comp. ER 88* IR L3 LTG Duration 8 weeks quickdash Impairment pt scores 43 on quick dash Short Term Goal (STG) will assess next visit 08/28 pt will score 30 and less on quick dash to improve his mobility and strength STG Duration 4 weeks Comber Operator Goal (LTG) pt will score 20 and less on quick dash to improve his mobility and strength LTG Duration 8 weeks Assessment Summary Assessment pt reports improved overall ROM but still has difficulty reaching behind his back. His flexion, ER, abd all improved. Tx focused on increasing bicep flexiblity and he margy well. Pt only have 2 more authorized visits. Had him schedule one more at the end of October. Physical Therapy Plan Frequency and Duration Frequency of Treatment 1x/Week Duration of Treatment 8 weeks Plan of Care Start Date 08/28/20 Plan of Care End Date 10/27/20 Therapeutic Interventions Therapeutic Interventions Gait Training,Home Exercise Program,Joint Mobilizations, Manual Therapy,Neuromuscular Re-education,Patient/Caregiver Education,Self-Care/Home Management,Soft Tissue Mobilization,Taping, Therapeutic Activities, Therapeutic Exercises Modalities Biofeedback,Cold Pack/Ice Massage,Electric Stimulation, Hot Packs,Infrared Therapy, Iontophoresis,Ultrasound Next Visit Focus/Plan Next Note Type Treatment Note Next Visit Plan Next tx check cervical ROM, progressive HEP. See Assessment suggestions/ comments. POC: STM at subscap, infra, teres minor posterior glide of GHJ mariel scap retraction AAROM with cane
--- NOTE | 2020-11-06 14:52 | PT.OPDS ---
Current Diagnoses Pain in right shoulder (10/13/20) Unspecified disorder of synovium and tendon, right shoulder (10/13/20) Unspecified disorder of synovium and tendon, right upper arm (10/13/20) Impingement syndrome of right shoulder (10/13/20) Visit Care Team Role Provider Type Jarod Raymond MD Primary Care Provider Non-Staff Specialty: Family Practice Address: [address] [place] [address], [place], [address] Email: Hai Munoz PA-C Attending Provider Non-Staff Referring Provider Specialty: Nursing Address: [address] [facility], [place], [address] Email: Visit Number Visit Number 15 Discharge Summary PT-OP-T Assessment and Plan Start: 06/22/20 13:02 Freq: Status: Active Protocol: Document 11/06/20 14:51 (Rec: 11/06/20 14:52 [email or web address]) Physical Therapy Plan Discharge Physical Therapy Discharge Reasons No Longer Attending PT Discharge Comments pt no show today. Called him and he stated he forgot about the appt but he has been progressing well so far. Requested to be DC from PT today.
== END 2020-11-07 11:14 | disposition home or self-care (01) ==
LOC: PHYS 09:45
PROVIDERS: PCP Family Medicine; Referring Provider Physician Assistant Surgical; Visit Provider Physician Assistant Surgical
DX: M25.511 Pain in right shoulder (principal); M75.41 Impingement syndrome of right shoulder; M67.911 Unspecified disorder of synovium and tendon, right shoulder; M67.921 Unspecified disorder of synovium and tendon, right upper arm
CPT/HCPCS: 97110; 97140; 97161